=== PATIENT | male | born 1975 | race Caucasian/White ===

== ENCOUNTER 2017-06-19 10:24 | Inpatient (IN) | payer OTHER ==
[~2017-06-19] VITALS: Ht 185.4 cm; Wt 94.5 kg
[2017-06-19] MEDS ORDERED: ONDANSETRON PF 4 MG/2 ML VIAL. IV ONE (10:45)
[2017-06-19] MEDS ORDERED: IV NORMAL SALINE 1000ML BAG 1,000 ML IV ONE (10:45)
[2017-06-19] MEDS ORDERED: fentaNYL PF VIAL 100 MCG/2 ML VIAL IV ONE (10:45)
[2017-06-19 11:09] LABS: POTASSIUM ISTAT 5.2 mmol/L (3.5-5.0)
[2017-06-19 11:54] LABS: BASO % 0 % (0-3); EOS % 0 % (0-3); HEMATOCRIT 28.1 % (39.0-53.0); HEMOGLOBIN 9.1 g/dL (13.0-17.5); LYMPH # 2.5 x10^3/uL (1.0-4.8); LYMPH % 14 % (24-48); MEAN CORPUSCULAR HEMOGLOBIN 26 pg (25-35); MEAN CORPUSCULAR HGB CONC 33 g/dL (31-37); MEAN CORPUSCULAR VOLUME 80 fL (79-100); MONO % 9 % (0-9); NEUT % 78 % (31-73); PLATELET COUNT 365 x10^3/uL (140-400); RED CELL DISTRIBUTION WIDTH 15.3 % (11.5-14.5); WHITE BLOOD COUNT 18.4 x10^3/uL (4.0-11.0)
[2017-06-19] MEDS ORDERED: MORPHINE SULFATE 4 MG/ML DISP.SYRIN. IV ONE (12:15)
[2017-06-19 12:57] LABS: BILIRUBIN,URINE NEGATIVE (NEG); GLUCOSE,URINE NEGATIVE (NEG); NITRITE,URINE NEGATIVE (NEG); PH,URINE 6.5; PROTEIN,URINE NEGATIVE (NEG-TRACE); UROBILINOGEN,URINE 0.2 mg/dL (0.2 mg/dL)
[2017-06-19 13:12] LABS: BACTERIA,URINE 0 /HPF (0-FEW); RBC,URINE 0 /HPF (0-2); WBC,URINE 0 /HPF (0-4)
[2017-06-19] MEDS ORDERED: methylPREDNISolone SOD SUCC PF 125 MG/2 ML VIAL. IV ONE (13:15)
[2017-06-19] MEDS ORDERED: MORPHINE SULFATE 10 MG/ML VIAL. IV ONE (13:30)
[2017-06-19] MEDS ORDERED: MORPHINE SULFATE 4 MG/ML DISP.SYRIN. IV PRN (13:30)
[2017-06-19] MEDS ORDERED: ONDANSETRON PF 4 MG/2 ML VIAL. IV PRN (13:30)
--- NOTE | 2017-06-19 13:44 | ED.ADGEN ---
Past Medical History Past Medical History: GERD, Kidney Stone, Other Additional Past Medical Histor: Crohn's Past Surgical History: Appendectomy, Other Additional Past Surgical Histo: COLON RESECTION X2 Alcohol Use: None Drug Use: None Adult General Chief Complaint Chief Complaint: BLOODY STOOL HPI HPI Patient is a 41 year old MALE who presents with rectal bleeding and abdominal pain. She's had symptoms for the last couple of days. He has history of Crohn's , is had multiple bloody bowel movements. He is not currently on steroids. Seen in another ER yesterday and discharged home but his symptoms persist. He's feeling lightheaded and gets flushed and pale whenever he stands up. His GI specialist is Dr. Sam. Prior abdominal surgeries include a cystectomy and appendectomy. No Fevers noted. Review of Systems Review of Systems Constitutional: Denies fever or chills. [] Eyes: Denies change in visual acuity. [] HENT: Denies nasal congestion or sore throat. [] Respiratory: Denies cough or shortness of breath. [] Cardiovascular: Denies chest pain or edema. [] GI: Per history of present illness : Denies dysuria. [] Musculoskeletal: Denies back pain or joint pain. [] Integument: Denies rash. [] Neurologic: Denies headache, focal weakness or sensory changes. [] Endocrine: Denies polyuria or polydipsia. [] Lymphatic: Denies swollen glands. [] Current Medications Current Medications Current Medications Medications (Trade) Dose Ordered Sig/Liliana Start Time Stop Time Status Last Admin Dose Admin Fentanyl Citrate (Fentanyl 2ml Vial) 50 mcg 1X ONCE 06/19/17 10:45 06/19/17 10:46 DC 06/19/17 11:12 50 MCG Methylprednisolone Sodium Succinate (SOLU-Medrol 125MG VIAL) 125 mg 1X ONCE 06/19/17 13:15 06/19/17 13:16 DC 06/19/17 13:24 125 MG Morphine Sulfate 4 mg PRN Q2HR PRN 06/19/17 13:30 06/20/17 13:29 Ondansetron HCl (Zofran) 4 mg PRN Q8HRS PRN 06/19/17 13:30 06/20/17 13:29 Sodium Chloride 1,000 ml @ 1,000 mls/hr 1X ONCE 06/19/17 10:45 06/19/17 11:44 DC 06/19/17 11:12 1,000 MLS/HR Allergies Allergies Allergies Coded Allergies Type Severity Reaction Last Updated Verified Iodinated Contrast- Oral and IV Dye Allergy Severe 06/19/17 No NSAIDS (Non-Steroidal Anti-Inflamma Allergy Unknown 03/28/14 No metaxalone Allergy Unknown 03/28/14 No Physical Exam Physical Exam Constitutional: Well developed, well nourished, ill-appearing non-toxic appearance. [] HENT: Normocephalic, atraumatic, bilateral external ears normal, oropharynx moist, no oral exudates, nose normal. [] Eyes: PERRLA, EOMI, conjunctiva pale, no discharge. [] Neck: Normal range of motion, no tenderness, supple, no stridor. [] Cardiovascular:Heart rate tachy with regular rhythm, no murmur [] Lungs & Thorax: Bilateral breath sounds clear to auscultation , no wheeze Abdomen: Bowel sounds normal, soft, nondistended, ttp along R upper/mid/lower abdomen. Skin: Warm, dry, no erythema, no rash. [] Back: No tenderness, no CVA tenderness. [] Extremities: No tenderness, no cyanosis, no clubbing, ROM intact, no edema. [] Neurologic: Alert and oriented X 3, normal motor function, normal sensory function, no focal deficits noted. [] Current Patient Data Vital Signs Vital Signs Date Time Temp Pulse Resp B/P (MAP) Pulse Ox O2 Delivery O2 Flow Rate FiO2 06/19/17 13:27 80 20 112/59 (76) 99 Room Air 06/19/17 10:46 98.2 98.2 Lab Values Laboratory Tests Test 06/19/17 11:06 06/19/17 11:15 06/19/17 12:30 POC Hemoglobin 8.5 g/dL (14-18) L POC Hematocrit 25 % (37-52) L POC Sodium 133 mmol/L (135-145) L POC Potassium 5.2 mmol/L (3.5-5.0) H POC Chloride 105 mmol/L (98-110) POC Total CO2 24 mmol/L (23-32) Anion Gap 10 mmol/L (6-14) POC Blood Urea Nitrogen 29 mg/dL (8-26) H POC Creatinine 1.0 mg/dL (0.5-1.4) Glucose Level 109 mg/dL (70-99) H POC Ionized Calcium (Xenia) 1.07 mmol/L (1.13-1.32) L White Blood Count 18.4 x10^3/uL (4.0-11.0) H Red Blood Count 3.50 x10^6/uL (4.30-5.70) L Hemoglobin 9.1 g/dL (13.0-17.5) L Hematocrit 28.1 % (39.0-53.0) L Mean Corpuscular Volume 80 fL (79-100) Mean Corpuscular Hemoglobin 26 pg (25-35) Mean Corpuscular Hemoglobin Concent 33 g/dL (31-37) Red Cell Distribution Width 15.3 % (11.5-14.5) H Platelet Count 365 x10^3/uL (140-400) Neutrophils (%) (Auto) 78 % (31-73) H Lymphocytes (%) (Auto) 14 % (24-48) L Monocytes (%) (Auto) 9 % (0-9) Eosinophils (%) (Auto) 0 % (0-3) Basophils (%) (Auto) 0 % (0-3) Neutrophils # (Auto) 14.2 x10^3uL (1.8-7.7) H Lymphocytes # (Auto) 2.5 x10^3/uL (1.0-4.8) Monocytes # (Auto) 1.6 x10^3/uL (0.0-1.1) H Eosinophils # (Auto) 0.0 x10^3/uL (0.0-0.7) Basophils # (Auto) 0.0 x10^3/uL (0.0-0.2) Platelet Estimate Pending Lactic Acid Level 1.1 mmol/L (0.4-2.0) Urine Collection Type Unknown Urine Color Yellow Urine Clarity Clear Urine pH 6.5 Urine Specific [place] >=1.030 Urine Protein Negative mg/dL (NEG-TRACE) Urine Glucose (UA) Negative mg/dL (NEG) Urine Ketones (Stick) Trace mg/dL (NEG) Urine Blood Negative (NEG) Urine Nitrite Negative (NEG) Urine Bilirubin Negative (NEG) Urine Urobilinogen Dipstick 0.2 mg/dL (0.2 mg/dL) Urine Leukocyte Esterase Negative (NEG) Urine RBC 0 /HPF (0-2) Urine WBC 0 /HPF (0-4) Urine Bacteria 0 /HPF (0-FEW) Urine Hyaline Casts Many /HPF Urine Mucus Marked /LPF Laboratory Tests 06/19/17 11:15 Laboratory Tests 06/19/17 11:06 EKG EKG [] Radiology/Procedures Radiology/Procedures CT abdomen and pelvis ordered to be transferred via the cloud from [facility]], no present at time care transferred Course & Med Decision Making Course & Med Decision Making Pertinent Labs and Imaging studies reviewed. (See chart for details) Pt given IV fluids, required multipl dosing I pains meds. HR improved to 100, no active vomiting. elevated WBC with left shift. Anemia. Contacted Dr Young office, [employer] recommends IV steroids, given. No abx or blood at this time , they will see pt. Pt accepted by Dr. Clinton for admission, ongoing management. DX: Anemia Abdominal pain Crohns [place] Disclaimer Dragon Disclaimer This electronic medical record was generated, in whole or in part, using a voice recognition dictation system. ZEESHAN CHEN MD Jun 19, 2017 13:44
[2017-06-19 13:55] LABS: % EOS 1 % (0-5); PLT ESTIMATE ADEQUATE (ADEQUATE)
[2017-06-19] MEDS ORDERED: diphenhydrAMINE 50 MG/ML VIAL IVP ONE (14:00)
[2017-06-19] MEDS ORDERED: fentaNYL PF VIAL 100 MCG/2 ML VIAL IV PRN ×2 (14:00→14:45)
[2017-06-19] MEDS ORDERED: DEXT20TA24 PO (14:25)
[2017-06-19] MEDS ORDERED: MULT-245 PO (14:27)
[2017-06-19] MEDS ORDERED: CYAN100T PO (14:27)
[2017-06-19] MEDS: IV NORMAL SALINE 1000ML BAG 1,000 ML IV SCH ×2 (14:45→22:45)
[2017-06-19] MEDS ORDERED: ACETAMINOPHEN 500 MG TABLET PO PRN (14:45)
--- NOTE | 2017-06-19 14:55 | PDOC1 ---
History and Physical Date of Admission Date of Admission DATE: 06/19/17 TIME: 14:48 Identification/Chief Complaint Chief Complaint abd pain, rectal bleed Problems: Source Source: Caregiver, Chart review, Patient History of Present Illness History of Present Illness 41 y.o male, known Crohn's since 1995 (mom has Crohn's), has been on Humira yrs back, off now, started to have severe abd pain few days, went to OP given pred which he tapered as instructed getting ready for another round of biologic as OP. Yesterday, tarry stools, tachycardic, could not go to work today , At ER, Hgb 8,5 (from 9.1), WBC 18, no fevers, abd pain uncontrolled with morphine and fentanyl, Had CT done at [place] start yesterday - we are getting those, GI is dr propeck Tachycardia better now after IVF, but pain persists. Lactate normal, K 5,3 - hemolyzed??. Last C scope was some yrs ago Past Medical History Hepatobiliary: Other (crohns) Past Surgical History Past Surgical History: No pertinent history Family History Family History: Other (Crohn's) Social History Smoke: No ALCOHOL: none Drugs: None Current Medications Current Medications Current Medications Fentanyl Citrate (Fentanyl 2ml Vial) 50 mcg 1X ONCE IV Last administered on 11:12; Start 06/19/17 at 10:45; Stop 06/19/17 at 10:46; Status DC Ondansetron HCl (Zofran) 4 mg 1X ONCE IV Last administered on 06/19/17 11:12 ; Start 06/19/17 at 10:45; Stop 06/19/17 at 10:46; Status DC Sodium Chloride 1,000 ml @ 1,000 mls/hr 1X ONCE IV Last administered on 11:12; Start 06/19/17 at 10:45; Stop 06/19/17 at 11:44; Status DC Morphine Sulfate 4 mg 1X ONCE IV Last administered on 06/19/17 12:09; Start 06/19/17 at 12:15; Stop 06/19/17 at 12:16; Status DC Methylprednisolone Sodium Succinate (SOLU-Medrol 125MG VIAL) 125 mg 1X ONCE IV Last administered on 06/19/17 13:24; Start 06/19/17 at 13:15; Stop 06/19/17 at 13:16; Status DC Morphine Sulfate 5 mg 1X ONCE IV Last administered on 06/19/17 13:38; Start 06/19/17 at 13:30; Stop 06/19/17 at 13:31; Status DC Ondansetron HCl (Zofran) 4 mg PRN Q8HRS PRN IV NAUSEA/VOMITING Last administered on 06/19/17 13:37; Start 06/19/17 at 13:30; Stop 06/19/17 at 14:36 ; Status DC Morphine Sulfate 4 mg PRN Q2HR PRN IV PAIN; Start 06/19/17 at 13:30; Stop 06/19 at 13:51; Status DC Diphenhydramine HCl (Benadryl) 25 mg 1X ONCE IVP Last administered on 13:58; Start 06/19/17 at 14:00; Stop 06/19/17 at 14:01; Status DC Fentanyl Citrate (Fentanyl 2ml Vial) 50 mcg PRN Q1HR PRN IV pain; Start at 14:00; Stop 06/19/17 at 14:36; Status DC Fentanyl Citrate (Fentanyl 2ml Vial) 50 mcg PRN Q2HR PRN IV pain; Start at 14:45; Stop 06/19/17 at 18:00 Ondansetron HCl (Zofran) 4 mg PRN Q6HRS PRN IV NAUSEA/VOMITING; Start 06/19/17 at 14:45; Stop 06/20/17 at 14:44 Sodium Chloride 1,000 ml @ 125 mls/hr Q8H IV ; Start 06/19/17 at 14:45 Famotidine (Pepcid) 20 mg BID IVP ; Start 06/19/17 at 21:00 Acetaminophen (Tylenol) 500 mg PRN Q6HRS PRN PO MILD PAIN / TEMP; Start at 14:45 Active Scripts Active Reported Vitamin B-12 (Cyanocobalamin (Vitamin B-12)) 100 Mcg Tablet 100 Mcg PO Multi Vitamin Daily (Multivitamin) 1 Each Tablet 1 Each PO Amphetamine Salts 20 Mg Tablet (Dextroamphetamine/Amphetamine) 20 Mg Tablet 20 Mg PO Allergies Allergies: Coded Allergies: Iodinated Contrast- Oral and IV Dye (Unverified Allergy, Severe, 06/19/17) NSAIDS (Non-Steroidal Anti-Inflamma (Unverified Allergy, Unknown, 03/28/14) metaxalone (Unverified Allergy, Unknown, 03/28/14) ROS Review of System as per HPI, all else is neg - no fevers, no bloody emesis Physical Exam General: Alert, Oriented X3, Cooperative, No acute distress, Other (but looks uncomfortable from pain, bucket at bedside) HEENT: PERRLA Lungs: Clear to auscultation, Normal air movement Heart: S1S2, RRR, no thrills, no rubs Cardiovascular: S1, S2 Abdomen: Soft, Other (tenderness all over but no guarding) Male Genitals Exam: normal genitalia, normal prostate Rectal Exam: not examined PELVIC: Nml ext genitalia Extremities: No clubbing, No cyanosis, No edema, Normal pulses, No tenderness/ swelling Skin: No rashes, No breakdown, No significant lesion Neuro: Normal gait, Normal speech, Strength at 5/5 X4 ext, Normal tone, Sensation intact, Cranial nerves 3-12 NL, Reflexes 2+ Psych/Mental Status: Mental status NL, Mood NL Vitals Vitals Vital Signs Date Time Temp Pulse Resp B/P (MAP) Pulse Ox O2 Delivery O2 Flow Rate FiO2 06/19/17 14:02 77 20 107/63 (78) 98 Room Air 06/19/17 10:46 98.2 98.2 Labs Labs Laboratory Tests Test 06/19/17 11:06 06/19/17 11:15 06/19/17 12:30 Bedside Hemoglobin 8.5 g/dL (14-18) Bedside Hematocrit 25 % (37-52) Bedside Sodium 133 mmol/L (135-145) Bedside Potassium 5.2 mmol/L (3.5-5.0) Bedside Chloride 105 mmol/L (98-110) Bedside Total CO2 24 mmol/L (23-32) Anion Gap 10 mmol/L (6-14) Bedside Blood Urea Nitrogen 29 mg/dL (8-26) Bedside Creatinine 1.0 mg/dL (0.5-1.4) Glucose Level 109 mg/dL (70-99) Bedside Ionized Calcium (Xenia) 1.07 mmol/L (1.13-1.32) White Blood Count 18.4 x10^3/uL (4.0-11.0) Red Blood Count 3.50 x10^6/uL (4.30-5.70) Hemoglobin 9.1 g/dL (13.0-17.5) Hematocrit 28.1 % (39.0-53.0) Mean Corpuscular Volume 80 fL (79-100) Mean Corpuscular Hemoglobin 26 pg (25-35) Mean Corpuscular Hemoglobin Concent 33 g/dL (31-37) Red Cell Distribution Width 15.3 % (11.5-14.5) Platelet Count 365 x10^3/uL (140-400) Neutrophils (%) (Auto) 78 % (31-73) Lymphocytes (%) (Auto) 14 % (24-48) Monocytes (%) (Auto) 9 % (0-9) Eosinophils (%) (Auto) 0 % (0-3) Basophils (%) (Auto) 0 % (0-3) Neutrophils # (Auto) 14.2 x10^3uL (1.8-7.7) Lymphocytes # (Auto) 2.5 x10^3/uL (1.0-4.8) Monocytes # (Auto) 1.6 x10^3/uL (0.0-1.1) Eosinophils # (Auto) 0.0 x10^3/uL (0.0-0.7) Basophils # (Auto) 0.0 x10^3/uL (0.0-0.2) Segmented Neutrophils % 83 % (35-66) Lymphocytes % 12 % (24-48) Monocytes % 4 % (0-10) Eosinophils % 1 % (0-5) Platelet Estimate Adequate (ADEQUATE) Lactic Acid Level 1.1 mmol/L (0.4-2.0) Urine Collection Type Unknown Urine Color Yellow Urine Clarity Clear Urine pH 6.5 Urine Specific [place] >=1.030 Urine Protein Negative mg/dL (NEG-TRACE) Urine Glucose (UA) Negative mg/dL (NEG) Urine Ketones (Stick) Trace mg/dL (NEG) Urine Blood Negative (NEG) Urine Nitrite Negative (NEG) Urine Bilirubin Negative (NEG) Urine Urobilinogen Dipstick 0.2 mg/dL (0.2 mg/dL) Urine Leukocyte Esterase Negative (NEG) Urine RBC 0 /HPF (0-2) Urine WBC 0 /HPF (0-4) Urine Bacteria 0 /HPF (0-FEW) Urine Hyaline Casts Many /HPF Urine Mucus Marked /LPF Laboratory Tests Test 06/19/17 11:06 06/19/17 11:15 06/19/17 12:30 Bedside Hemoglobin 8.5 g/dL (14-18) Bedside Hematocrit 25 % (37-52) Bedside Sodium 133 mmol/L (135-145) Bedside Potassium 5.2 mmol/L (3.5-5.0) Bedside Chloride 105 mmol/L (98-110) Bedside Total CO2 24 mmol/L (23-32) Anion Gap 10 mmol/L (6-14) Bedside Blood Urea Nitrogen 29 mg/dL (8-26) Bedside Creatinine 1.0 mg/dL (0.5-1.4) Glucose Level 109 mg/dL (70-99) Bedside Ionized Calcium (Xenia) 1.07 mmol/L (1.13-1.32) White Blood Count 18.4 x10^3/uL (4.0-11.0) Red Blood Count 3.50 x10^6/uL (4.30-5.70) Hemoglobin 9.1 g/dL (13.0-17.5) Hematocrit 28.1 % (39.0-53.0) Mean Corpuscular Volume 80 fL (79-100) Mean Corpuscular Hemoglobin 26 pg (25-35) Mean Corpuscular Hemoglobin Concent 33 g/dL (31-37) Red Cell Distribution Width 15.3 % (11.5-14.5) Platelet Count 365 x10^3/uL (140-400) Neutrophils (%) (Auto) 78 % (31-73) Lymphocytes (%) (Auto) 14 % (24-48) Monocytes (%) (Auto) 9 % (0-9) Eosinophils (%) (Auto) 0 % (0-3) Basophils (%) (Auto) 0 % (0-3) Neutrophils # (Auto) 14.2 x10^3uL (1.8-7.7) Lymphocytes # (Auto) 2.5 x10^3/uL (1.0-4.8) Monocytes # (Auto) 1.6 x10^3/uL (0.0-1.1) Eosinophils # (Auto) 0.0 x10^3/uL (0.0-0.7) Basophils # (Auto) 0.0 x10^3/uL (0.0-0.2) Segmented Neutrophils % 83 % (35-66) Lymphocytes % 12 % (24-48) Monocytes % 4 % (0-10) Eosinophils % 1 % (0-5) Platelet Estimate Adequate (ADEQUATE) Lactic Acid Level 1.1 mmol/L (0.4-2.0) Urine Collection Type Unknown Urine Color Yellow Urine Clarity Clear Urine pH 6.5 Urine Specific [place] >=1.030 Urine Protein Negative mg/dL (NEG-TRACE) Urine Glucose (UA) Negative mg/dL (NEG) Urine Ketones (Stick) Trace mg/dL (NEG) Urine Blood Negative (NEG) Urine Nitrite Negative (NEG) Urine Bilirubin Negative (NEG) Urine Urobilinogen Dipstick 0.2 mg/dL (0.2 mg/dL) Urine Leukocyte Esterase Negative (NEG) Urine RBC 0 /HPF (0-2) Urine WBC 0 /HPF (0-4) Urine Bacteria 0 /HPF (0-FEW) Urine Hyaline Casts Many /HPF Urine Mucus Marked /LPF VTE Prophylaxis Ordered VTE Prophylaxis Devices: Contraindicated VTE Pharmacological Prophylaxi: Contraindicated Assessment/Plan Assessment/Plan 1. Crohn's exacerbation 2. Anemia of blood loss? on top of chronic inflammation 3,. Tarry stools 4,. SInus tachycardia in oleg background of pain and anemia 5. Mild hyperkalemia PLAn: Add ESR Admit [address] records from [facility] Add dilaudid prn for pain NPO Aggressive iVF 125cc/hr PPI IV Steroids iV? 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
--- NOTE | 2017-06-19 15:13 | PDOC2 ---
GI CONSULT Reason For Consult: Crohn's, anemia HPI: HPI: 41 y/o male w/ a h/o Crohn's s/p resection x 2, initially diagnosed in the (colonoscopy w/ non-specific colitis by Dr. Holt in 1995). Has been followed by many gastroenterologists; most recent saw Dr. Sam in the office in 12/2016. At that time, it was planned to start prednisone taper (which he finished two weeks ago) and resume Humira w/ recommendations to repeat colonoscopy for screening in 2018. He has been off of Humira (and all Crohn's treatments except prednisone) since last resection w/ Dr. Mas in 02/2015. He actually has it at home, ready to take, but was advised by the [facility] nurse ambassador not to start it due to URI symptoms. Last EGD per records reviewed by Dr. Sheridan in 11/2015: hiatal hernia, reflux esophagitis, gastritis, duodenitis, duodenal ulcers. Also had duodenal ulcers on previous EGD in 2014. At one point biopsies negative for H. pylori. Was on omeprazole until several weeks ago; stopped due to cost. Last colonoscopy per records in 10/[address] Campos (prior to resection): single ulcer at anastomosis. Yesterday felt weak w/ SOA and racing heart, most noticed when walking up stairs. Saw PCP, says "everything was fine." Returned home, had a "black tarry stool" and felt sweaty and lightheaded. Went to [facility] ER where a CT scan was performed; he was sent home where threw up some undigested djiboutian fries. 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 He called Dr. Sam's office and was advised to come to the ER. Hgb 9, WBC 18, normal lactic acid. POC BUN was 29 w/ K+ 5.2. Refused another CT; records of yesterday's CT have been requested through the cloud but are not available at this time. Denies hematemesis and hematochezia. Not sure what baseline Hgb is. Probably has lost 10-15 pounds. Appetite okay. Intermittent right-sided pain. Normal bowel pattern in 2-3 stools daily. No h/o C Diff. No recent atbx use, travel, or sick contacts. No NSAID use. Given IV steroids (Solu-Medrol 135mg x 1), started on IV H2 catrachita BID, NPO. PMH: PMH: Crohn's disease s/p 2 resections, nephrolithiasis, cystoscopy, lithotripsy FH: Family History: Other (mother and uncle have Crohn's) Social History: Smoke: Quit ALCOHOL: none Drugs: None ROS: GEN: Denies fevers, chills, sweats HEENT: Denies blurred vision, sore throat CV: +SOA GI: Per HPI : Denies hematuria, dysuria ENDO: +weight loss NEURO: +lightheaded MSK: +weakness SKIN: Denies jaundice, pruritus Vitals: Vitals: Vital Signs Date Time Temp Pulse Resp B/P (MAP) Pulse Ox O2 Delivery O2 Flow Rate FiO2 06/19/17 14:02 77 20 107/63 (78) 98 Room Air 06/19/17 10:46 98.2 98.2 Labs: Labs: Laboratory Tests Test 06/19/17 11:06 06/19/17 11:15 06/19/17 12:30 Bedside Hemoglobin 8.5 g/dL (14-18) Bedside Hematocrit 25 % (37-52) Bedside Sodium 133 mmol/L (135-145) Bedside Potassium 5.2 mmol/L (3.5-5.0) Bedside Chloride 105 mmol/L (98-110) Bedside Total CO2 24 mmol/L (23-32) Anion Gap 10 mmol/L (6-14) Bedside Blood Urea Nitrogen 29 mg/dL (8-26) Bedside Creatinine 1.0 mg/dL (0.5-1.4) Glucose Level 109 mg/dL (70-99) Bedside Ionized Calcium (Xenia) 1.07 mmol/L (1.13-1.32) White Blood Count 18.4 x10^3/uL (4.0-11.0) Red Blood Count 3.50 x10^6/uL (4.30-5.70) Hemoglobin 9.1 g/dL (13.0-17.5) Hematocrit 28.1 % (39.0-53.0) Mean Corpuscular Volume 80 fL (79-100) Mean Corpuscular Hemoglobin 26 pg (25-35) Mean Corpuscular Hemoglobin Concent 33 g/dL (31-37) Red Cell Distribution Width 15.3 % (11.5-14.5) Platelet Count 365 x10^3/uL (140-400) Neutrophils (%) (Auto) 78 % (31-73) Lymphocytes (%) (Auto) 14 % (24-48) Monocytes (%) (Auto) 9 % (0-9) Eosinophils (%) (Auto) 0 % (0-3) Basophils (%) (Auto) 0 % (0-3) Neutrophils # (Auto) 14.2 x10^3uL (1.8-7.7) Lymphocytes # (Auto) 2.5 x10^3/uL (1.0-4.8) Monocytes # (Auto) 1.6 x10^3/uL (0.0-1.1) Eosinophils # (Auto) 0.0 x10^3/uL (0.0-0.7) Basophils # (Auto) 0.0 x10^3/uL (0.0-0.2) Segmented Neutrophils % 83 % (35-66) Lymphocytes % 12 % (24-48) Monocytes % 4 % (0-10) Eosinophils % 1 % (0-5) Platelet Estimate Adequate (ADEQUATE) Lactic Acid Level 1.1 mmol/L (0.4-2.0) Urine Collection Type Unknown Urine Color Yellow Urine Clarity Clear Urine pH 6.5 Urine Specific [place] >=1.030 Urine Protein Negative mg/dL (NEG-TRACE) Urine Glucose (UA) Negative mg/dL (NEG) Urine Ketones (Stick) Trace mg/dL (NEG) Urine Blood Negative (NEG) Urine Nitrite Negative (NEG) Urine Bilirubin Negative (NEG) Urine Urobilinogen Dipstick 0.2 mg/dL (0.2 mg/dL) Urine Leukocyte Esterase Negative (NEG) Urine RBC 0 /HPF (0-2) Urine WBC 0 /HPF (0-4) Urine Bacteria 0 /HPF (0-FEW) Urine Hyaline Casts Many /HPF Urine Mucus Marked /LPF Allergies: Coded Allergies: Iodinated Contrast- Oral and IV Dye (Unverified Allergy, Severe, 06/19/17) NSAIDS (Non-Steroidal Anti-Inflamma (Unverified Allergy, Unknown, 03/28/14) metaxalone (Unverified Allergy, Unknown, 03/28/14) Medications: Current Medications Medications (Trade) Dose Ordered Sig/Liliana Route PRN Reason Start Time Stop Time Status Last Admin Dose Admin Fentanyl Citrate (Fentanyl 2ml Vial) 50 mcg 1X ONCE IV 06/19/17 10:45 06/19/17 10:46 DC 06/19/17 11:12 Ondansetron HCl (Zofran) 4 mg 1X ONCE IV 06/19/17 10:45 06/19/17 10:46 DC 06/19/17 11:12 Sodium Chloride 1,000 ml @ 1,000 mls/hr 1X ONCE IV 06/19/17 10:45 06/19/17 11:44 DC 06/19/17 11:12 Morphine Sulfate 4 mg 1X ONCE IV 06/19/17 12:15 06/19/17 12:16 DC 06/19/17 12:09 Methylprednisolone Sodium Succinate (SOLU-Medrol 125MG VIAL) 125 mg 1X ONCE IV 06/19/17 13:15 06/19/17 13:16 DC 06/19/17 13:24 Morphine Sulfate 5 mg 1X ONCE IV 06/19/17 13:30 06/19/17 13:31 DC 06/19/17 13:38 Ondansetron HCl (Zofran) 4 mg PRN Q8HRS PRN IV NAUSEA/VOMITING 06/19/17 13:30 06/19/17 14:36 DC 06/19/17 13:37 Diphenhydramine HCl (Benadryl) 25 mg 1X ONCE IVP 06/19/17 14:00 06/19/17 14:01 DC 06/19/17 13:58 Imaging: Imaging: Per HPI. PE: GEN: NAD HEENT: Atraumatic, PERRL LUNGS: CTAB HEART: RRR ABD: NABS, S/ND, vague RUQ tenderness EXTREMITY: No edema SKIN: No rashes, no jaundice NEURO/PSYCH: A & O 3 A/P: A/P: Anemia, black stools, lightheadedness -Hgb 9.1, POC BUN 29 -had CT yesterday at [facility], results unavailable ---> refuses repeat scan here -normal lactic acid H/o duodenal ulcers, gastritis, GERD -off PPI x several weeks -last EGD in 2016 H/o Crohn's s/p resection x 2 -recently tapered off prednisone -plans to restart Humira ---> has been off since last resection in 02/2015 -last colonoscopy 2014 Intermittent right-sided pain, weight loss -- Agree w/ IV H2 catrachita w/ h/o ANTHONY. Dr. Sam to see later - ?continue IV steroids or resume PO (w/ recent taper) ?stool studies NURIA CROSS Jun 19, 2017 15:13
[2017-06-19 15:54] VITALS: BP 120/70
[2017-06-19 15:55] VITALS: BP 120/70
[2017-06-19] MEDS: ONDANSETRON PF 4 MG/2 ML VIAL. IV PRN (16:14)
[2017-06-19] MEDS: HYDROmorphone 2 MG/ML VIAL IV PRN ×2 (16:16→20:01)
[2017-06-19 19:00] VITALS: BP 96/52
[2017-06-19] MEDS: FAMOTIDINE 20 MG/2 ML VIAL IVP SCH (20:01)
[2017-06-19 22:36] VITALS: BP 92/52
[2017-06-20] VITALS (30 sets, daily range): BP systolic 94–135; BP diastolic 48–75
[2017-06-20] MEDS: IV NORMAL SALINE 1000ML BAG 1,000 ML IV SCH ×3 (04:06→18:15)
[2017-06-20 06:43] LABS: BASO # 0.1 x10^3/uL (0.0-0.2); BASO % 1 % (0-3); EOS % 0 % (0-3); LYMPH # 2.6 x10^3/uL (1.0-4.8); LYMPH % 23 % (24-48); MEAN CORPUSCULAR HEMOGLOBIN 26 pg (25-35); MEAN CORPUSCULAR HGB CONC 33 g/dL (31-37); MEAN CORPUSCULAR VOLUME 79 fL (79-100); MONO % 6 % (0-9); NEUT % 71 % (31-73); PLATELET COUNT 295 x10^3/uL (140-400); RED BLOOD COUNT 2.28 x10^6/uL (4.30-5.70); RED CELL DISTRIBUTION WIDTH 15.5 % (11.5-14.5); WHITE BLOOD COUNT 11.5 x10^3/uL (4.0-11.0)
[2017-06-20 06:53] LABS: HEMATOCRIT 18.1 % (39.0-53.0)
[2017-06-20 06:56] LABS: CALCIUM 8.3 mg/dL (8.5-10.1); CREATININE 0.8 mg/dL (0.7-1.3); GFR 107.6; POTASSIUM 3.8 mmol/L (3.5-5.1)
[2017-06-20] MEDS ORDERED: IV RINGERS,LACTATED 1000ML 1,000 ML IV SCH ×2 (07:00→09:43)
[2017-06-20] MEDS ORDERED: PROPOFOL 0 ML IV ONE (09:02)
[2017-06-20] MEDS ORDERED: LIDOCAINE 2% PF Vial for OR 5 ML VIAL. ONE (09:03)
--- NOTE | 2017-06-20 09:41 | PDOC4 ---
Operative Note Operative Note EGD with bx/control of bleeding Meds propofol 430 mg iv Pre-op dx acute blood loss anemia/melena Post-op dx duodenal ulcer with adherent clot s/p clip/cautery/epi injection non-erosive gastritis s/p bx Plan npo iv acid suppression serial cbcs/transfuse to maintain hg > 8 IR/surgery consults for possible embolization/oversew if patient rebleeds DEBBIE MURRAY MD Jun 20, 2017 09:41
[2017-06-20] MEDS ORDERED: fentaNYL PF VIAL 100 MCG/2 ML VIAL IV PRN ×2 (09:45)
[2017-06-20] MEDS ORDERED: ONDANSETRON PF 4 MG/2 ML VIAL. IV PRN (09:45)
[2017-06-20] MEDS ORDERED: PROCHLORPERAZINE 10 MG/2 ML VIAL. IV PRN (09:45)
[2017-06-20] MEDS ORDERED: HYDROmorphone 2 MG/ML VIAL IV PRN (09:45)
[2017-06-20] MEDS ORDERED: MORPHINE SULFATE 2 MG/ML DISP.SYRIN. IV PRN (09:45)
[2017-06-20] MEDS ORDERED: LIDOCAINE 1% PF 2 ML VIAL. ID PRN (09:45)
[2017-06-20] MEDS ORDERED: EPINEPHrine SYRINGE 1 MG/10 ML SYRINGE ONE (09:49)
[2017-06-20] MEDS: HYDROmorphone 2 MG/ML VIAL IV PRN ×5 (09:51→17:20)
[2017-06-20] MEDS: ONDANSETRON PF 4 MG/2 ML VIAL. IV PRN (09:55)
[2017-06-20 10:23] LABS: HEMATOCRIT 26.7 % (39.0-53.0); HEMOGLOBIN 8.9 g/dL (13.0-17.5); RED BLOOD COUNT 3.16 x10^6/uL (4.30-5.70); RED CELL DISTRIBUTION WIDTH 16.8 % (11.5-14.5); WHITE BLOOD COUNT 25.5 x10^3/uL (4.0-11.0)
[2017-06-20 10:45] LABS: % SAT IRON 24 % (15-34); IRON,SERUM 53 ug/dL (65-175)
[2017-06-20] MEDS: PANTOPRAZOLE SODIUM IV DRIP 80 MG in IV NORMAL SALINE 100ML 100 ML IV SCH ×2 (12:24→20:14)
[2017-06-20] MEDS: FAMOTIDINE 20 MG/2 ML VIAL IVP SCH (12:32)
[2017-06-20] MEDS ORDERED: MORPHINE SULFATE 4 MG/ML DISP.SYRIN. IV PRN (15:15)
[2017-06-20] MEDS: MORPHINE SULFATE 4 MG/ML DISP.SYRIN. IV PRN ×3 (15:43→22:18)
--- NOTE | 2017-06-20 16:06 | PDOC ---
PROGRESS NOTES Chief Complaint Chief Complaint 1. Crohn's exacerbation 2. Anemia of blood loss 3, .acute upper GI bleed, acute blood loss anemia, 4. duodenal ulcer with adherent clot and non-erosive gastritis 5, SIRS, due to #3 and #1 6. hyperkalemia, hyponatremia improved 6. acute abdominal pain History of Present Illness History of Present Illness EGD today bleeding ulcer clipped and injected Gen surg and IR consulted to follow if bleeding recurs. Q6 Hgb overnight pain control with IV, NPO for now, biotene Vitals Vitals Vital Signs Date Time Temp Pulse Resp B/P (MAP) Pulse Ox O2 Delivery O2 Flow Rate FiO2 06/20/17 10:13 16 100 Room Air 06/20/17 10:10 85 112/57 06/20/17 09:38 98.4 98.4 Physical Exam General: Alert, Oriented X3, Cooperative, No acute distress, Other (but looks uncomfortable from pain, bucket at bedside) Heart: Regular rate, No murmurs Lungs: Clear Abdomen: Soft, Other (tenderness all over but no guarding) Extremities: No clubbing, No cyanosis, No edema, Normal pulses, No tenderness/ swelling Skin: No rashes, No breakdown, No significant lesion Labs LABS Laboratory Tests Test 06/20/17 06:00 06/20/17 10:05 White Blood Count 11.5 x10^3/uL (4.0-11.0) 25.5 x10^3/uL (4.0-11.0) Red Blood Count 2.28 x10^6/uL (4.30-5.70) 3.16 x10^6/uL (4.30-5.70) Hemoglobin 6.0 g/dL (13.0-17.5) 8.9 g/dL (13.0-17.5) Hematocrit 18.1 % (39.0-53.0) 26.7 % (39.0-53.0) Mean Corpuscular Volume 79 fL (79-100) 84 fL (79-100) Mean Corpuscular Hemoglobin 26 pg (25-35) 28 pg (25-35) Mean Corpuscular Hemoglobin Concent 33 g/dL (31-37) 33 g/dL (31-37) Red Cell Distribution Width 15.5 % (11.5-14.5) 16.8 % (11.5-14.5) Platelet Count 295 x10^3/uL (140-400) 380 x10^3/uL (140-400) Neutrophils (%) (Auto) 71 % (31-73) Lymphocytes (%) (Auto) 23 % (24-48) Monocytes (%) (Auto) 6 % (0-9) Eosinophils (%) (Auto) 0 % (0-3) Basophils (%) (Auto) 1 % (0-3) Neutrophils # (Auto) 8.2 x10^3uL (1.8-7.7) Lymphocytes # (Auto) 2.6 x10^3/uL (1.0-4.8) Monocytes # (Auto) 0.7 x10^3/uL (0.0-1.1) Eosinophils # (Auto) 0.0 x10^3/uL (0.0-0.7) Basophils # (Auto) 0.1 x10^3/uL (0.0-0.2) Sodium Level 141 mmol/L (136-145) Potassium Level 3.8 mmol/L (3.5-5.1) Chloride Level 107 mmol/L (98-107) Carbon Dioxide Level 29 mmol/L (21-32) Anion Gap 5 (6-14) Blood Urea Nitrogen 18 mg/dL (8-26) Creatinine 0.8 mg/dL (0.7-1.3) Estimated GFR (Cockcroft-Gault) 107.6 Glucose Level 95 mg/dL (70-99) Calcium Level 8.3 mg/dL (8.5-10.1) Iron Level 53 ug/dL (65-175) Total Iron Binding Capacity 220 ug/dL (250-450) Iron Saturation 24 % (15-34) Review of Systems Review of Systems right flank pain and abd pain Assessment and Plan Assessmemt and Plan IV pain med control, IV fluid, NPO, biotene Problems: Comment Review of Relevant I have reviewed the following items jassi (where applicable) has been applied. Labs Laboratory Tests Test 06/19/17 11:06 06/19/17 11:15 06/19/17 12:30 06/20/17 06:00 Bedside Hemoglobin 8.5 g/dL (14-18) Bedside Hematocrit 25 % (37-52) Bedside Sodium 133 mmol/L (135-145) Bedside Potassium 5.2 mmol/L (3.5-5.0) Bedside Chloride 105 mmol/L (98-110) Bedside Total CO2 24 mmol/L (23-32) Anion Gap 10 mmol/L (6-14) 5 (6-14) Bedside Blood Urea Nitrogen 29 mg/dL (8-26) Bedside Creatinine 1.0 mg/dL (0.5-1.4) Glucose Level 109 mg/dL (70-99) 95 mg/dL (70-99) Bedside Ionized Calcium ([place]) 1.07 mmol/L (1.13-1.32) White Blood Count 18.4 x10^3/uL (4.0-11.0) 11.5 x10^3/uL (4.0-11.0) Red Blood Count 3.50 x10^6/uL (4.30-5.70) 2.28 x10^6/uL (4.30-5.70) Hemoglobin 9.1 g/dL (13.0-17.5) 6.0 g/dL (13.0-17.5) Hematocrit 28.1 % (39.0-53.0) 18.1 % (39.0-53.0) Mean Corpuscular Volume 80 fL (79-100) 79 fL (79-100) Mean Corpuscular Hemoglobin 26 pg (25-35) 26 pg (25-35) Mean Corpuscular Hemoglobin Concent 33 g/dL (31-37) 33 g/dL (31-37) Red Cell Distribution Width 15.3 % (11.5-14.5) 15.5 % (11.5-14.5) Platelet Count 365 x10^3/uL (140-400) 295 x10^3/uL (140-400) Neutrophils (%) (Auto) 78 % (31-73) 71 % (31-73) Lymphocytes (%) (Auto) 14 % (24-48) 23 % (24-48) Monocytes (%) (Auto) 9 % (0-9) 6 % (0-9) Eosinophils (%) (Auto) 0 % (0-3) 0 % (0-3) Basophils (%) (Auto) 0 % (0-3) 1 % (0-3) Neutrophils # (Auto) 14.2 x10^3uL (1.8-7.7) 8.2 x10^3uL (1.8-7.7) Lymphocytes # (Auto) 2.5 x10^3/uL (1.0-4.8) 2.6 x10^3/uL (1.0-4.8) Monocytes # (Auto) 1.6 x10^3/uL (0.0-1.1) 0.7 x10^3/uL (0.0-1.1) Eosinophils # (Auto) 0.0 x10^3/uL (0.0-0.7) 0.0 x10^3/uL (0.0-0.7) Basophils # (Auto) 0.0 x10^3/uL (0.0-0.2) 0.1 x10^3/uL (0.0-0.2) Segmented Neutrophils % 83 % (35-66) Lymphocytes % 12 % (24-48) Monocytes % 4 % (0-10) Eosinophils % 1 % (0-5) Platelet Estimate Adequate (ADEQUATE) Erythrocyte Sedimentation Rate 35 (0-15) Lactic Acid Level 1.1 mmol/L (0.4-2.0) Urine Collection Type Unknown Urine Color Yellow Urine Clarity Clear Urine pH 6.5 Urine Specific [place] >=1.030 Urine Protein Negative mg/dL (NEG-TRACE) Urine Glucose (UA) Negative mg/dL (NEG) Urine Ketones (Stick) Trace mg/dL (NEG) Urine Blood Negative (NEG) Urine Nitrite Negative (NEG) Urine Bilirubin Negative (NEG) Urine Urobilinogen Dipstick 0.2 mg/dL (0.2 mg/dL) Urine Leukocyte Esterase Negative (NEG) Urine RBC 0 /HPF (0-2) Urine WBC 0 /HPF (0-4) Urine Bacteria 0 /HPF (0-FEW) Urine Hyaline Casts Many /HPF Urine Mucus Marked /LPF Sodium Level 141 mmol/L (136-145) Potassium Level 3.8 mmol/L (3.5-5.1) Chloride Level 107 mmol/L (98-107) Carbon Dioxide Level 29 mmol/L (21-32) Blood Urea Nitrogen 18 mg/dL (8-26) Creatinine 0.8 mg/dL (0.7-1.3) Estimated GFR (Cockcroft-Gault) 107.6 Calcium Level 8.3 mg/dL (8.5-10.1) Test 06/20/17 10:05 White Blood Count 25.5 x10^3/uL (4.0-11.0) Red Blood Count 3.16 x10^6/uL (4.30-5.70) Hemoglobin 8.9 g/dL (13.0-17.5) Hematocrit 26.7 % (39.0-53.0) Mean Corpuscular Volume 84 fL (79-100) Mean Corpuscular Hemoglobin 28 pg (25-35) Mean Corpuscular Hemoglobin Concent 33 g/dL (31-37) Red Cell Distribution Width 16.8 % (11.5-14.5) Platelet Count 380 x10^3/uL (140-400) Iron Level 53 ug/dL (65-175) Total Iron Binding Capacity 220 ug/dL (250-450) Iron Saturation 24 % (15-34) Laboratory Tests Test 06/20/17 06:00 06/20/17 10:05 White Blood Count 11.5 x10^3/uL (4.0-11.0) 25.5 x10^3/uL (4.0-11.0) Red Blood Count 2.28 x10^6/uL (4.30-5.70) 3.16 x10^6/uL (4.30-5.70) Hemoglobin 6.0 g/dL (13.0-17.5) 8.9 g/dL (13.0-17.5) Hematocrit 18.1 % (39.0-53.0) 26.7 % (39.0-53.0) Mean Corpuscular Volume 79 fL (79-100) 84 fL (79-100) Mean Corpuscular Hemoglobin 26 pg (25-35) 28 pg (25-35) Mean Corpuscular Hemoglobin Concent 33 g/dL (31-37) 33 g/dL (31-37) Red Cell Distribution Width 15.5 % (11.5-14.5) 16.8 % (11.5-14.5) Platelet Count 295 x10^3/uL (140-400) 380 x10^3/uL (140-400) Neutrophils (%) (Auto) 71 % (31-73) Lymphocytes (%) (Auto) 23 % (24-48) Monocytes (%) (Auto) 6 % (0-9) Eosinophils (%) (Auto) 0 % (0-3) Basophils (%) (Auto) 1 % (0-3) Neutrophils # (Auto) 8.2 x10^3uL (1.8-7.7) Lymphocytes # (Auto) 2.6 x10^3/uL (1.0-4.8) Monocytes # (Auto) 0.7 x10^3/uL (0.0-1.1) Eosinophils # (Auto) 0.0 x10^3/uL (0.0-0.7) Basophils # (Auto) 0.1 x10^3/uL (0.0-0.2) Sodium Level 141 mmol/L (136-145) Potassium Level 3.8 mmol/L (3.5-5.1) Chloride Level 107 mmol/L (98-107) Carbon Dioxide Level 29 mmol/L (21-32) Anion Gap 5 (6-14) Blood Urea Nitrogen 18 mg/dL (8-26) Creatinine 0.8 mg/dL (0.7-1.3) Estimated GFR (Cockcroft-Gault) 107.6 Glucose Level 95 mg/dL (70-99) Calcium Level 8.3 mg/dL (8.5-10.1) Iron Level 53 ug/dL (65-175) Total Iron Binding Capacity 220 ug/dL (250-450) Iron Saturation 24 % (15-34) Medications Current Medications Fentanyl Citrate (Fentanyl 2ml Vial) 50 mcg 1X ONCE IV Last administered on 11:12; Start 06/19/17 at 10:45; Stop 06/19/17 at 10:46; Status DC Ondansetron HCl (Zofran) 4 mg 1X ONCE IV Last administered on 06/19/17 11:12 ; Start 06/19/17 at 10:45; Stop 06/19/17 at 10:46; Status DC Sodium Chloride 1,000 ml @ 1,000 mls/hr 1X ONCE IV Last administered on 11:12; Start 06/19/17 at 10:45; Stop 06/19/17 at 11:44; Status DC Morphine Sulfate 4 mg 1X ONCE IV Last administered on 06/19/17 12:09; Start 06/19/17 at 12:15; Stop 06/19/17 at 12:16; Status DC Methylprednisolone Sodium Succinate (SOLU-Medrol 125MG VIAL) 125 mg 1X ONCE IV Last administered on 06/19/17 13:24; Start 06/19/17 at 13:15; Stop 06/19/17 at 13:16; Status DC Morphine Sulfate 5 mg 1X ONCE IV Last administered on 06/19/17 13:38; Start 06/19/17 at 13:30; Stop 06/19/17 at 13:31; Status DC Ondansetron HCl (Zofran) 4 mg PRN Q8HRS PRN IV NAUSEA/VOMITING Last administered on 06/19/17 13:37; Start 06/19/17 at 13:30; Stop 06/19/17 at 14:36 ; Status DC Morphine Sulfate 4 mg PRN Q2HR PRN IV PAIN; Start 06/19/17 at 13:30; Stop 06/19 at 13:51; Status DC Diphenhydramine HCl (Benadryl) 25 mg 1X ONCE IVP Last administered on 13:58; Start 06/19/17 at 14:00; Stop 06/19/17 at 14:01; Status DC Fentanyl Citrate (Fentanyl 2ml Vial) 50 mcg PRN Q1HR PRN IV pain; Start at 14:00; Stop 06/19/17 at 14:36; Status DC Fentanyl Citrate (Fentanyl 2ml Vial) 50 mcg PRN Q2HR PRN IV pain Last administered on 06/19/17 17:37; Start 06/19/17 at 14:45; Stop 06/19/17 at 18:00 ; Status DC Ondansetron HCl (Zofran) 4 mg PRN Q6HRS PRN IV NAUSEA/VOMITING Last administered on 06/20/17 09:55; Start 06/19/17 at 14:45; Stop 06/20/17 at 14:44 ; Status DC Sodium Chloride 1,000 ml @ 175 mls/hr [id number] IV Last administered on 11:50; Start 06/19/17 at 14:45 Famotidine (Pepcid) 20 mg BID IVP Last administered on 06/20/17t 12:32; Start 06/19/17 at 21:00; Stop 06/20/17 at 15:46; Status DC Acetaminophen (Tylenol) 500 mg PRN Q6HRS PRN PO MILD PAIN / TEMP; Start at 14:45 Hydromorphone HCl (Dilaudid) 1 mg PRN Q3HRS PRN IV PAIN Last administered on t 10:13; Start 06/19/17 at 15:00; Stop 06/20/17 at 11:32; Status DC Ringer's Solution 1,000 ml @ 75 mls/hr [id number] IV ; Start 06/20/17 at 07:00; Stop 06/20/17 at 11:32; Status DC Propofol 20 ml @ As Directed STK-MED ONCE IV ; Start 06/20/17 at 09:02; Stop at 09:03; Status DC Lidocaine HCl (Lidocaine Pf 2% Vial) 5 ml STK-MED ONCE .ROUTE ; Start 06/20/17 at 09:03; Stop 06/20/17 at 09:04; Status DC Ondansetron HCl (Zofran) 4 mg PRN Q6HRS PRN IV NAUSEA/VOMITING; Start 06/20/17 at 09:45; Stop 06/21/17 at 09:44 Fentanyl Citrate (Fentanyl 2ml Vial) 25 mcg PRN Q5MIN PRN IV MILD PAIN; Start 06/20/17 at 09:45; Stop 06/21/17 at 09:44 Fentanyl Citrate (Fentanyl 2ml Vial) 50 mcg PRN Q5MIN PRN IV MODERATE PAIN; Start 06/20/17 at 09:45; Stop 06/21/17 at 09:44 Morphine Sulfate 1 mg PRN Q10MIN PRN IV SEVERE PAIN; Start 06/20/17 at 09:45; Stop 06/21/17 at 09:44 Ringer's Solution 1,000 ml @ 30 mls/hr Q24H IV ; Start 06/20/17 at 09:43; Stop 06/20/17 at 11:32; Status DC Lidocaine HCl (Xylocaine-Mpf 1% Vial) 2 ml PRN 1X PRN ID PRIOR TO IV START; Start 06/20/17 at 09:45; Stop 06/21/17 at 09:44 Hydromorphone HCl (Dilaudid) 0.5 mg PRN Q10MIN PRN IV SEV PAIN, Second choice; Start 06/20/17 at 09:45; Stop 06/21/17 at 09:44 Prochlorperazine Edisylate (Compazine) 5 mg PACU PRN PRN IV NAUSEA, MRX1; Start 06/20/17 at 09:45; Stop 06/21/17 at 09:44 Epinephrine HCl (EPINEPHrine SYRINGE) 1 mg STK-MED ONCE .ROUTE ; Start 06/20/17 at 09:49; Stop 06/20/17 at 09:50; Status DC Hydromorphone HCl (Dilaudid) 1 mg PRN Q1HR PRN IV PAIN Last administered on 14:08; Start 06/20/17 at 11:45 Pantoprazole Sodium 80 mg/ Sodium Chloride 100 ml @ 10 mls/hr Q10H IV Last administered on 06/20/17 12:24; Start 06/20/17 at 12:00 Morphine Sulfate 4 mg PRN Q2HR PRN IV PAIN Last administered on 06/20/17 15:43 ; Start 06/20/17 at 11:45 Morphine Sulfate 2 mg PRN Q4HRS PRN IV PAIN; Start 06/20/17 at 15:15 Active Scripts Active Reported Vitamin B-12 (Cyanocobalamin (Vitamin B-12)) 100 Mcg Tablet 100 Mcg PO Multi Vitamin Daily (Multivitamin) 1 Each Tablet 1 Each PO Amphetamine Salts 20 Mg Tablet (Dextroamphetamine/Amphetamine) 20 Mg Tablet 20 Mg PO Vitals/I & O Vital Sign - Last 24 Hours 06/19/17 06/19/17 06/19/17 06/19/17 16:04 16:16 17:37 17:39 Pulse Ox 100 100 100 O2 Delivery Room Air Room Air Room Air 06/19/17 06/19/17 06/19/17 06/19/17 18:18 18:18 18:18 18:19 Pulse Ox 100 100 100 100 O2 Delivery Room Air Room Air Room Air Room Air 06/19/17 06/19/17 06/19/17 06/20/17 19:00 20:00 22:36 02:43 Temp 98.8 97.9 98.4 98.8 97.9 98.4 Pulse 91 102 90 Resp 18 18 18 B/P (MAP) 96/52 (67) 92/52 (65) 94/48 (63) Pulse Ox 100 97 100 O2 Delivery Room Air Room Air Room Air Room Air 06/20/17 06/20/17 06/20/17 06/20/17 06:37 06:37 07:51 08:07 Temp 98.6 97.7 97.0 98.6 97.7 97.0 Pulse 93 115 84 Resp 18 18 16 B/P (MAP) 118/58 109/60 Pulse Ox 98 O2 Delivery Room Air 06/20/17 06/20/17 06/20/17 06/20/17 08:15 08:17 08:33 08:57 Temp 97.5 97.0 97.5 98.2 97.5 97.0 97.5 98.2 Pulse 95 88 97 90 Resp 16 16 16 14 B/P (MAP) 112/55 112/55 109/56 111/56 06/20/17 06/20/17 06/20/17 06/20/17 09:12 09:38 09:51 09:55 Temp 98.4 98.4 98.4 98.4 Pulse 91 104 85 Resp 14 16 16 16 B/P (MAP) 117/55 133/81 119/57 Pulse Ox 98 98 100 O2 Delivery Room Air Room Air Room Air 06/20/17 06/20/17 10:10 10:13 Pulse 85 Resp 16 16 B/P (MAP) 112/57 Pulse Ox 97 100 O2 Delivery Room Air Room Air JAMIL WOODS MD Jun 20, 2017 16:06
[2017-06-20] MEDS ORDERED: SALIVA STIMULANT AGENT 44ML SPRAY BOTTLE. PO PRN (16:15)
[2017-06-20 18:05] LABS: INR 1.2 (0.8-1.1); PROTHROMBIN TIME PATIENT 14.2 SEC (11.7-14.0)
[2017-06-20 23:41] LABS: HEMATOCRIT 24.7 % (39.0-53.0); HEMOGLOBIN 8.3 g/dL (13.0-17.5); RED BLOOD COUNT 2.87 x10^6/uL (4.30-5.70); RED CELL DISTRIBUTION WIDTH 17.7 % (11.5-14.5); WHITE BLOOD COUNT 9.5 x10^3/uL (4.0-11.0)
[2017-06-21] VITALS (17 sets, daily range): BP systolic 90–152; BP diastolic 52–95
[2017-06-21] MEDS: IV NORMAL SALINE 1000ML BAG 1,000 ML IV SCH ×4 (03:12→21:11)
[2017-06-21] MEDS: MORPHINE SULFATE 4 MG/ML DISP.SYRIN. IV PRN ×6 (03:48→21:06)
[2017-06-21] MEDS ORDERED: ONDANSETRON PF 4 MG/2 ML VIAL. IV PRN (04:00)
[2017-06-21 05:52] LABS: BASO % 1 % (0-3); EOS % 0 % (0-3); HEMATOCRIT 24.5 % (39.0-53.0); HEMOGLOBIN 8.2 g/dL (13.0-17.5); LYMPH # 1.7 x10^3/uL (1.0-4.8); LYMPH % 20 % (24-48); MEAN CORPUSCULAR HEMOGLOBIN 29 pg (25-35); MEAN CORPUSCULAR HGB CONC 34 g/dL (31-37); MEAN CORPUSCULAR VOLUME 86 fL (79-100); MONO % 6 % (0-9); NEUT % 73 % (31-73); PLATELET COUNT 177 x10^3/uL (140-400); RED BLOOD COUNT 2.84 x10^6/uL (4.30-5.70); RED CELL DISTRIBUTION WIDTH 17.9 % (11.5-14.5); WHITE BLOOD COUNT 8.6 x10^3/uL (4.0-11.0)
[2017-06-21 06:15] LABS: ALBUMIN 2.4 g/dL (3.4-5.0); ALBUMIN/GLOBULIN RATIO 0.9 (1.0-1.7); CALCIUM 8.2 mg/dL (8.5-10.1); CREATININE 0.8 mg/dL (0.7-1.3); GFR 107.6; POTASSIUM 3.6 mmol/L (3.5-5.1); TOTAL BILIRUBIN 0.2 mg/dL (0.2-1.0); TOTAL PROTEIN 5.1 g/dL (6.4-8.2)
[2017-06-21] MEDS: PANTOPRAZOLE SODIUM IV DRIP 80 MG in IV NORMAL SALINE 100ML 100 ML IV SCH ×2 (08:13→21:12)
--- NOTE | 2017-06-21 08:40 | PDOC ---
PROGRESS NOTES Chief Complaint Chief Complaint 1. Crohn's exacerbation 2. Anemia of blood loss s/p BTs 3, .acute upper GI bleed, acute blood loss anemia, 4. duodenal ulcer with adherent clot and non-erosive gastritis s/.p EGD with clipping and electrocautery (06/21) 5, SIRS, due to #3 and #1 6. hyperkalemia, hyponatremia improved 6. 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 Vitals Vitals Vital Signs Date Time Temp Pulse Resp B/P (MAP) Pulse Ox O2 Delivery O2 Flow Rate FiO2 06/21/17 08:06 98 Room Air 06/21/17 07:30 98.0 84 20 109/59 (76) 98.0 Physical Exam General: Alert, Oriented X3, Cooperative, No acute distress, Other (but looks uncomfortable from pain, bucket at bedside) Heart: Regular rate, No murmurs Lungs: Clear Abdomen: Soft, Other (tenderness all over but no guarding) Extremities: No clubbing, No cyanosis, No edema, Normal pulses, No tenderness/ swelling Skin: No rashes, No breakdown, No significant lesion Labs LABS Laboratory Tests Test 06/20/17 10:05 06/20/17 11:50 06/20/17 15:55 06/20/17 17:45 White Blood Count 25.5 x10^3/uL (4.0-11.0) Red Blood Count 3.16 x10^6/uL (4.30-5.70) Hemoglobin 8.9 g/dL (13.0-17.5) 7.6 g/dL (13.0-17.5) Hematocrit 26.7 % (39.0-53.0) Mean Corpuscular Volume 84 fL (79-100) Mean Corpuscular Hemoglobin 28 pg (25-35) Mean Corpuscular Hemoglobin Concent 33 g/dL (31-37) Red Cell Distribution Width 16.8 % (11.5-14.5) Platelet Count 380 x10^3/uL (140-400) Iron Level 53 ug/dL (65-175) Total Iron Binding Capacity 220 ug/dL (250-450) Iron Saturation 24 % (15-34) Vitamin B12 Level 161 pg/mL (247-911) Serum Folate 9.04 ng/ml (3.2-20.0) Nasal Screen MRSA (PCR) Negative (Negative) Prothrombin Time 14.2 SEC (11.7-14.0) Prothromb Time International Ratio 1.2 (0.8-1.1) Test 06/20/17 22:35 06/21/17 05:40 White Blood Count 9.5 x10^3/uL (4.0-11.0) 8.6 x10^3/uL (4.0-11.0) Red Blood Count 2.87 x10^6/uL (4.30-5.70) 2.84 x10^6/uL (4.30-5.70) Hemoglobin 8.3 g/dL (13.0-17.5) 8.2 g/dL (13.0-17.5) Hematocrit 24.7 % (39.0-53.0) 24.5 % (39.0-53.0) Mean Corpuscular Volume 86 fL (79-100) 86 fL (79-100) Mean Corpuscular Hemoglobin 29 pg (25-35) 29 pg (25-35) Mean Corpuscular Hemoglobin Concent 34 g/dL (31-37) 34 g/dL (31-37) Red Cell Distribution Width 17.7 % (11.5-14.5) 17.9 % (11.5-14.5) Platelet Count 173 x10^3/uL (140-400) 177 x10^3/uL (140-400) Neutrophils (%) (Auto) 73 % (31-73) Lymphocytes (%) (Auto) 20 % (24-48) Monocytes (%) (Auto) 6 % (0-9) Eosinophils (%) (Auto) 0 % (0-3) Basophils (%) (Auto) 1 % (0-3) Neutrophils # (Auto) 6.3 x10^3uL (1.8-7.7) Lymphocytes # (Auto) 1.7 x10^3/uL (1.0-4.8) Monocytes # (Auto) 0.5 x10^3/uL (0.0-1.1) Eosinophils # (Auto) 0.0 x10^3/uL (0.0-0.7) Basophils # (Auto) 0.0 x10^3/uL (0.0-0.2) Reticulocyte Count (auto) 1.4 % (0.5-2.5) Sodium Level 143 mmol/L (136-145) Potassium Level 3.6 mmol/L (3.5-5.1) Chloride Level 108 mmol/L (98-107) Carbon Dioxide Level 29 mmol/L (21-32) Anion Gap 6 (6-14) Blood Urea Nitrogen 12 mg/dL (8-26) Creatinine 0.8 mg/dL (0.7-1.3) Estimated GFR (Cockcroft-Gault) 107.6 BUN/Creatinine Ratio 15 (6-20) Glucose Level 91 mg/dL (70-99) Calcium Level 8.2 mg/dL (8.5-10.1) Total Bilirubin 0.2 mg/dL (0.2-1.0) Aspartate Amino Transf (AST/SGOT) 15 U/L (15-37) Alanine Aminotransferase (ALT/SGPT) 20 U/L (16-63) Alkaline Phosphatase 57 U/L (46-116) Total Protein 5.1 g/dL (6.4-8.2) Albumin 2.4 g/dL (3.4-5.0) Albumin/Globulin Ratio 0.9 (1.0-1.7) Review of Systems Review of Systems some back pain, stools lightening up, some abd sorness, better Comment Review of Relevant I have reviewed the following items jassi (where applicable) has been applied. Labs Laboratory Tests Test 06/19/17 11:06 06/19/17 11:15 06/19/17 12:30 06/20/17 06:00 Bedside Hemoglobin 8.5 g/dL (14-18) Bedside Hematocrit 25 % (37-52) Bedside Sodium 133 mmol/L (135-145) Bedside Potassium 5.2 mmol/L (3.5-5.0) Bedside Chloride 105 mmol/L (98-110) Bedside Total CO2 24 mmol/L (23-32) Anion Gap 10 mmol/L (6-14) 5 (6-14) Bedside Blood Urea Nitrogen 29 mg/dL (8-26) Bedside Creatinine 1.0 mg/dL (0.5-1.4) Glucose Level 109 mg/dL (70-99) 95 mg/dL (70-99) Bedside Ionized Calcium ([place]) 1.07 mmol/L (1.13-1.32) White Blood Count 18.4 x10^3/uL (4.0-11.0) 11.5 x10^3/uL (4.0-11.0) Red Blood Count 3.50 x10^6/uL (4.30-5.70) 2.28 x10^6/uL (4.30-5.70) Hemoglobin 9.1 g/dL (13.0-17.5) 6.0 g/dL (13.0-17.5) Hematocrit 28.1 % (39.0-53.0) 18.1 % (39.0-53.0) Mean Corpuscular Volume 80 fL (79-100) 79 fL (79-100) Mean Corpuscular Hemoglobin 26 pg (25-35) 26 pg (25-35) Mean Corpuscular Hemoglobin Concent 33 g/dL (31-37) 33 g/dL (31-37) Red Cell Distribution Width 15.3 % (11.5-14.5) 15.5 % (11.5-14.5) Platelet Count 365 x10^3/uL (140-400) 295 x10^3/uL (140-400) Neutrophils (%) (Auto) 78 % (31-73) 71 % (31-73) Lymphocytes (%) (Auto) 14 % (24-48) 23 % (24-48) Monocytes (%) (Auto) 9 % (0-9) 6 % (0-9) Eosinophils (%) (Auto) 0 % (0-3) 0 % (0-3) Basophils (%) (Auto) 0 % (0-3) 1 % (0-3) Neutrophils # (Auto) 14.2 x10^3uL (1.8-7.7) 8.2 x10^3uL (1.8-7.7) Lymphocytes # (Auto) 2.5 x10^3/uL (1.0-4.8) 2.6 x10^3/uL (1.0-4.8) Monocytes # (Auto) 1.6 x10^3/uL (0.0-1.1) 0.7 x10^3/uL (0.0-1.1) Eosinophils # (Auto) 0.0 x10^3/uL (0.0-0.7) 0.0 x10^3/uL (0.0-0.7) Basophils # (Auto) 0.0 x10^3/uL (0.0-0.2) 0.1 x10^3/uL (0.0-0.2) Segmented Neutrophils % 83 % (35-66) Lymphocytes % 12 % (24-48) Monocytes % 4 % (0-10) Eosinophils % 1 % (0-5) Platelet Estimate Adequate (ADEQUATE) Erythrocyte Sedimentation Rate 35 (0-15) Lactic Acid Level 1.1 mmol/L (0.4-2.0) Urine Collection Type Unknown Urine Color Yellow Urine Clarity Clear Urine pH 6.5 Urine Specific [place] >=1.030 Urine Protein Negative mg/dL (NEG-TRACE) Urine Glucose (UA) Negative mg/dL (NEG) Urine Ketones (Stick) Trace mg/dL (NEG) Urine Blood Negative (NEG) Urine Nitrite Negative (NEG) Urine Bilirubin Negative (NEG) Urine Urobilinogen Dipstick 0.2 mg/dL (0.2 mg/dL) Urine Leukocyte Esterase Negative (NEG) Urine RBC 0 /HPF (0-2) Urine WBC 0 /HPF (0-4) Urine Bacteria 0 /HPF (0-FEW) Urine Hyaline Casts Many /HPF Urine Mucus Marked /LPF Sodium Level 141 mmol/L (136-145) Potassium Level 3.8 mmol/L (3.5-5.1) Chloride Level 107 mmol/L (98-107) Carbon Dioxide Level 29 mmol/L (21-32) Blood Urea Nitrogen 18 mg/dL (8-26) Creatinine 0.8 mg/dL (0.7-1.3) Estimated GFR (Cockcroft-Gault) 107.6 Calcium Level 8.3 mg/dL (8.5-10.1) Test 06/20/17 10:05 06/20/17 11:50 06/20/17 15:55 06/20/17 17:45 White Blood Count 25.5 x10^3/uL (4.0-11.0) Red Blood Count 3.16 x10^6/uL (4.30-5.70) Hemoglobin 8.9 g/dL (13.0-17.5) 7.6 g/dL (13.0-17.5) Hematocrit 26.7 % (39.0-53.0) Mean Corpuscular Volume 84 fL (79-100) Mean Corpuscular Hemoglobin 28 pg (25-35) Mean Corpuscular Hemoglobin Concent 33 g/dL (31-37) Red Cell Distribution Width 16.8 % (11.5-14.5) Platelet Count 380 x10^3/uL (140-400) Iron Level 53 ug/dL (65-175) Total Iron Binding Capacity 220 ug/dL (250-450) Iron Saturation 24 % (15-34) Vitamin B12 Level 161 pg/mL (247-911) Serum Folate 9.04 ng/ml (3.2-20.0) Nasal Screen MRSA (PCR) Negative (Negative) Prothrombin Time 14.2 SEC (11.7-14.0) Prothromb Time International Ratio 1.2 (0.8-1.1) Test 06/20/17 22:35 06/21/17 05:40 White Blood Count 9.5 x10^3/uL (4.0-11.0) 8.6 x10^3/uL (4.0-11.0) Red Blood Count 2.87 x10^6/uL (4.30-5.70) 2.84 x10^6/uL (4.30-5.70) Hemoglobin 8.3 g/dL (13.0-17.5) 8.2 g/dL (13.0-17.5) Hematocrit 24.7 % (39.0-53.0) 24.5 % (39.0-53.0) Mean Corpuscular Volume 86 fL (79-100) 86 fL (79-100) Mean Corpuscular Hemoglobin 29 pg (25-35) 29 pg (25-35) Mean Corpuscular Hemoglobin Concent 34 g/dL (31-37) 34 g/dL (31-37) Red Cell Distribution Width 17.7 % (11.5-14.5) 17.9 % (11.5-14.5) Platelet Count 173 x10^3/uL (140-400) 177 x10^3/uL (140-400) Neutrophils (%) (Auto) 73 % (31-73) Lymphocytes (%) (Auto) 20 % (24-48) Monocytes (%) (Auto) 6 % (0-9) Eosinophils (%) (Auto) 0 % (0-3) Basophils (%) (Auto) 1 % (0-3) Neutrophils # (Auto) 6.3 x10^3uL (1.8-7.7) Lymphocytes # (Auto) 1.7 x10^3/uL (1.0-4.8) Monocytes # (Auto) 0.5 x10^3/uL (0.0-1.1) Eosinophils # (Auto) 0.0 x10^3/uL (0.0-0.7) Basophils # (Auto) 0.0 x10^3/uL (0.0-0.2) Reticulocyte Count (auto) 1.4 % (0.5-2.5) Sodium Level 143 mmol/L (136-145) Potassium Level 3.6 mmol/L (3.5-5.1) Chloride Level 108 mmol/L (98-107) Carbon Dioxide Level 29 mmol/L (21-32) Anion Gap 6 (6-14) Blood Urea Nitrogen 12 mg/dL (8-26) Creatinine 0.8 mg/dL (0.7-1.3) Estimated GFR (Cockcroft-Gault) 107.6 BUN/Creatinine Ratio 15 (6-20) Glucose Level 91 mg/dL (70-99) Calcium Level 8.2 mg/dL (8.5-10.1) Total Bilirubin 0.2 mg/dL (0.2-1.0) Aspartate Amino Transf (AST/SGOT) 15 U/L (15-37) Alanine Aminotransferase (ALT/SGPT) 20 U/L (16-63) Alkaline Phosphatase 57 U/L (46-116) Total Protein 5.1 g/dL (6.4-8.2) Albumin 2.4 g/dL (3.4-5.0) Albumin/Globulin Ratio 0.9 (1.0-1.7) Laboratory Tests Test 06/20/17 10:05 06/20/17 11:50 06/20/17 15:55 06/20/17 17:45 White Blood Count 25.5 x10^3/uL (4.0-11.0) Red Blood Count 3.16 x10^6/uL (4.30-5.70) Hemoglobin 8.9 g/dL (13.0-17.5) 7.6 g/dL (13.0-17.5) Hematocrit 26.7 % (39.0-53.0) Mean Corpuscular Volume 84 fL (79-100) Mean Corpuscular Hemoglobin 28 pg (25-35) Mean Corpuscular Hemoglobin Concent 33 g/dL (31-37) Red Cell Distribution Width 16.8 % (11.5-14.5) Platelet Count 380 x10^3/uL (140-400) Iron Level 53 ug/dL (65-175) Total Iron Binding Capacity 220 ug/dL (250-450) Iron Saturation 24 % (15-34) Vitamin B12 Level 161 pg/mL (247-911) Serum Folate 9.04 ng/ml (3.2-20.0) Nasal Screen MRSA (PCR) Negative (Negative) Prothrombin Time 14.2 SEC (11.7-14.0) Prothromb Time International Ratio 1.2 (0.8-1.1) Test 06/20/17 22:35 06/21/17 05:40 White Blood Count 9.5 x10^3/uL (4.0-11.0) 8.6 x10^3/uL (4.0-11.0) Red Blood Count 2.87 x10^6/uL (4.30-5.70) 2.84 x10^6/uL (4.30-5.70) Hemoglobin 8.3 g/dL (13.0-17.5) 8.2 g/dL (13.0-17.5) Hematocrit 24.7 % (39.0-53.0) 24.5 % (39.0-53.0) Mean Corpuscular Volume 86 fL (79-100) 86 fL (79-100) Mean Corpuscular Hemoglobin 29 pg (25-35) 29 pg (25-35) Mean Corpuscular Hemoglobin Concent 34 g/dL (31-37) 34 g/dL (31-37) Red Cell Distribution Width 17.7 % (11.5-14.5) 17.9 % (11.5-14.5) Platelet Count 173 x10^3/uL (140-400) 177 x10^3/uL (140-400) Neutrophils (%) (Auto) 73 % (31-73) Lymphocytes (%) (Auto) 20 % (24-48) Monocytes (%) (Auto) 6 % (0-9) Eosinophils (%) (Auto) 0 % (0-3) Basophils (%) (Auto) 1 % (0-3) Neutrophils # (Auto) 6.3 x10^3uL (1.8-7.7) Lymphocytes # (Auto) 1.7 x10^3/uL (1.0-4.8) Monocytes # (Auto) 0.5 x10^3/uL (0.0-1.1) Eosinophils # (Auto) 0.0 x10^3/uL (0.0-0.7) Basophils # (Auto) 0.0 x10^3/uL (0.0-0.2) Reticulocyte Count (auto) 1.4 % (0.5-2.5) Sodium Level 143 mmol/L (136-145) Potassium Level 3.6 mmol/L (3.5-5.1) Chloride Level 108 mmol/L (98-107) Carbon Dioxide Level 29 mmol/L (21-32) Anion Gap 6 (6-14) Blood Urea Nitrogen 12 mg/dL (8-26) Creatinine 0.8 mg/dL (0.7-1.3) Estimated GFR (Cockcroft-Gault) 107.6 BUN/Creatinine Ratio 15 (6-20) Glucose Level 91 mg/dL (70-99) Calcium Level 8.2 mg/dL (8.5-10.1) Total Bilirubin 0.2 mg/dL (0.2-1.0) Aspartate Amino Transf (AST/SGOT) 15 U/L (15-37) Alanine Aminotransferase (ALT/SGPT) 20 U/L (16-63) Alkaline Phosphatase 57 U/L (46-116) Total Protein 5.1 g/dL (6.4-8.2) Albumin 2.4 g/dL (3.4-5.0) Albumin/Globulin Ratio 0.9 (1.0-1.7) Medications Current Medications Fentanyl Citrate (Fentanyl 2ml Vial) 50 mcg 1X ONCE IV Last administered on 11:12; Start 06/19/17 at 10:45; Stop 06/19/17 at 10:46; Status DC Ondansetron HCl (Zofran) 4 mg 1X ONCE IV Last administered on 06/19/17 11:12 ; Start 06/19/17 at 10:45; Stop 06/19/17 at 10:46; Status DC Sodium Chloride 1,000 ml @ 1,000 mls/hr 1X ONCE IV Last administered on 11:12; Start 06/19/17 at 10:45; Stop 06/19/17 at 11:44; Status DC Morphine Sulfate 4 mg 1X ONCE IV Last administered on 06/19/17 12:09; Start 06/19/17 at 12:15; Stop 06/19/17 at 12:16; Status DC Methylprednisolone Sodium Succinate (SOLU-Medrol 125MG VIAL) 125 mg 1X ONCE IV Last administered on 06/19/17 13:24; Start 06/19/17 at 13:15; Stop 06/19/17 at 13:16; Status DC Morphine Sulfate 5 mg 1X ONCE IV Last administered on 06/19/17 13:38; Start 06/19/17 at 13:30; Stop 06/19/17 at 13:31; Status DC Ondansetron HCl (Zofran) 4 mg PRN Q8HRS PRN IV NAUSEA/VOMITING Last administered on 06/19/17 13:37; Start 06/19/17 at 13:30; Stop 06/19/17 at 14:36 ; Status DC Morphine Sulfate 4 mg PRN Q2HR PRN IV PAIN; Start 06/19/17 at 13:30; Stop 06/19 at 13:51; Status DC Diphenhydramine HCl (Benadryl) 25 mg 1X ONCE IVP Last administered on 13:58; Start 06/19/17 at 14:00; Stop 06/19/17 at 14:01; Status DC Fentanyl Citrate (Fentanyl 2ml Vial) 50 mcg PRN Q1HR PRN IV pain; Start at 14:00; Stop 06/19/17 at 14:36; Status DC Fentanyl Citrate (Fentanyl 2ml Vial) 50 mcg PRN Q2HR PRN IV pain Last administered on 06/19/17 17:37; Start 06/19/17 at 14:45; Stop 06/19/17 at 18:00 ; Status DC Ondansetron HCl (Zofran) 4 mg PRN Q6HRS PRN IV NAUSEA/VOMITING Last administered on 06/20/17 09:55; Start 06/19/17 at 14:45; Stop 06/20/17 at 14:44 ; Status DC Sodium Chloride 1,000 ml @ 175 mls/hr Q5H43M IV Last administered on 03:12; Start 06/19/17 at 14:45; Stop 06/21/17 at 08:30; Status DC Famotidine (Pepcid) 20 mg BID IVP Last administered on 06/20/17 12:32; Start 06/19/17 at 21:00; Stop 06/20/17 at 15:46; Status DC Acetaminophen (Tylenol) 500 mg PRN Q6HRS PRN PO MILD PAIN / TEMP; Start at 14:45 Hydromorphone HCl (Dilaudid) 1 mg PRN Q3HRS PRN IV PAIN Last administered on 10:13; Start 06/19/17 at 15:00; Stop 06/20/17 at 11:32; Status DC Ringer's Solution 1,000 ml @ 75 mls/hr [id number] IV ; Start 06/20/17 at 07:00; Stop 06/20/17 at 11:32; Status DC Propofol 20 ml @ As Directed STK-MED ONCE IV ; Start 06/20/17 at 09:02; Stop at 09:03; Status DC Lidocaine HCl (Lidocaine Pf 2% Vial) 5 ml STK-MED ONCE .ROUTE ; Start 06/20/17 at 09:03; Stop 06/20/17 at 09:04; Status DC Ondansetron HCl (Zofran) 4 mg PRN Q6HRS PRN IV NAUSEA/VOMITING; Start 06/20/17 at 09:45; Stop 06/21/17 at 09:44 Fentanyl Citrate (Fentanyl 2ml Vial) 25 mcg PRN Q5MIN PRN IV MILD PAIN; Start 06/20/17 at 09:45; Stop 06/21/17 at 09:44 Fentanyl Citrate (Fentanyl 2ml Vial) 50 mcg PRN Q5MIN PRN IV MODERATE PAIN; Start 06/20/17 at 09:45; Stop 06/21/17 at 09:44 Morphine Sulfate 1 mg PRN Q10MIN PRN IV SEVERE PAIN; Start 06/20/17 at 09:45; Stop 06/21/17 at 09:44 Ringer's Solution 1,000 ml @ 30 mls/hr Q24H IV ; Start 06/20/17 at 09:43; Stop 06/20/17 at 11:32; Status DC Lidocaine HCl (Xylocaine-Mpf 1% Vial) 2 ml PRN 1X PRN ID PRIOR TO IV START; Start 06/20/17 at 09:45; Stop 06/21/17 at 09:44 Hydromorphone HCl (Dilaudid) 0.5 mg PRN Q10MIN PRN IV SEV PAIN, Second choice; Start 06/20/17 at 09:45; Stop 06/21/17 at 09:44 Prochlorperazine Edisylate (Compazine) 5 mg PACU PRN PRN IV NAUSEA, MRX1; Start 06/20/17 at 09:45; Stop 06/21/17 at 09:44 Epinephrine HCl (EPINEPHrine SYRINGE) 1 mg STK-MED ONCE .ROUTE ; Start 06/20/17 at 09:49; Stop 06/20/17 at 09:50; Status DC Hydromorphone HCl (Dilaudid) 1 mg PRN Q1HR PRN IV PAIN Last administered on 17:20; Start 06/20/17 at 11:45 Pantoprazole Sodium 80 mg/ Sodium Chloride 100 ml @ 10 mls/hr Q10H IV Last administered on 06/21/17 08:13; Start 06/20/17 at 12:00 Morphine Sulfate 4 mg PRN Q2HR PRN IV PAIN Last administered on 06/21/17 08:06 ; Start 06/20/17 at 11:45 Morphine Sulfate 2 mg PRN Q4HRS PRN IV PAIN; Start 06/20/17 at 15:15 Saliva Substitute (Biotene Moisturizing Mouth) 2 spray PRN Q15MIN PRN PO DRY MOUTH; Start 06/20/17 at 16:15 Ondansetron HCl (Zofran) 4 mg PRN Q6HRS PRN IV NAUSEA/VOMITING; Start 06/21/17 at 04:00 Sodium Chloride 1,000 ml @ 100 mls/hr Q10H IV ; Start 06/21/17 at 08:30 Active Scripts Active Reported Vitamin B-12 (Cyanocobalamin (Vitamin B-12)) 100 Mcg Tablet 100 Mcg PO Multi Vitamin Daily (Multivitamin) 1 Each Tablet 1 Each PO Amphetamine Salts 20 Mg Tablet (Dextroamphetamine/Amphetamine) 20 Mg Tablet 20 Mg PO Vitals/I & O Vital Sign - Last 24 Hours 06/20/17 06/20/17 06/20/17 06/20/17 08:57 09:12 09:38 09:51 Temp 98.2 98.4 98.4 98.2 98.4 98.4 Pulse 90 91 104 Resp 14 14 16 16 B/P (MAP) 111/56 117/55 133/81 Pulse Ox 98 98 O2 Delivery Room Air Room Air 06/20/17 06/20/17 06/20/17 06/20/17 09:55 10:10 10:13 10:30 Pulse 85 85 82 Resp 16 16 16 18 B/P (MAP) 119/57 112/57 117/59 (78) Pulse Ox 100 97 100 98 O2 Delivery Room Air Room Air Room Air Room Air 06/20/17 06/20/17 06/20/17 06/20/17 10:45 11:00 11:00 11:15 Temp 98.8 98.8 Pulse 82 82 90 Resp 20 20 22 B/P (MAP) 135/67 (89) 125/71 (89) 128/69 (88) Pulse Ox 97 98 97 O2 Delivery Room Air Room Air Room Air Room Air 06/20/17 06/20/17 06/20/17 06/20/17 12:00 13:00 14:00 15:00 Temp 97.9 97.9 Pulse 80 84 96 92 Resp 16 16 18 20 B/P (MAP) 119/59 (79) 125/64 (84) 112/59 (76) 113/70 (84) Pulse Ox 98 100 99 100 O2 Delivery Room Air Room Air Room Air Room Air 06/20/17 06/20/17 06/20/17 06/20/17 16:00 16:00 17:00 17:49 Temp 98.9 98.7 98.9 98.7 Pulse 82 98 87 Resp 20 22 20 B/P (MAP) 106/53 (70) 97/51 (66) 107/61 Pulse Ox 99 99 O2 Delivery Room Air Room Air Room Air 06/20/17 06/20/17 06/20/17 06/20/17 18:00 18:08 18:45 19:00 Temp 99.4 99.4 99.2 99.4 99.4 99.2 Pulse 90 88 89 93 Resp 20 20 20 20 B/P (MAP) 108/67 (81) 108/67 94/59 104/59 (74) Pulse Ox 99 99 O2 Delivery Room Air Room Air 06/20/17 06/20/17 06/20/17 06/20/17 19:12 19:43 20:00 20:00 Temp 98.9 98.8 98.8 98.9 98.8 98.8 Pulse 90 89 96 Resp 15 20 12 20 B/P (MAP) 104/59 110/59 111/62 (78) Pulse Ox 99 99 O2 Delivery Room Air Room Air 06/20/17 06/20/17 06/20/17 06/20/17 20:00 21:00 21:48 22:00 Temp 98.8 98.8 Pulse 83 77 74 Resp 20 12 20 B/P (MAP) 117/66 (83) 112/62 114/62 (79) Pulse Ox 99 99 O2 Delivery Room Air Room Air Room Air 06/20/17 06/20/17 06/20/17 06/20/17 22:13 22:18 22:48 23:00 Temp 98.6 98.6 Pulse 84 89 Resp 12 12 10 20 B/P (MAP) 110/65 109/75 (86) Pulse Ox 99 99 O2 Delivery Room Air Room Air 06/21/17 06/21/17 06/21/17 06/21/17 00:00 00:00 00:00 00:11 Temp 98.7 98.7 98.7 98.7 98.7 98.7 Pulse 89 80 77 Resp 12 20 12 B/P (MAP) 109/75 101/59 (73) 101/59 Pulse Ox 99 O2 Delivery Room Air Room Air 06/21/17 06/21/17 06/21/17 06/21/17 01:00 02:00 03:00 03:48 Pulse 89 89 81 Resp 12 12 12 10 B/P (MAP) 90/52 (65) 129/67 (87) 110/60 (77) Pulse Ox 99 99 99 99 O2 Delivery Room Air Room Air Room Air Room Air 06/21/17 06/21/17 06/21/17 06/21/17 04:00 04:00 05:00 06:00 Temp 98.6 98.6 Pulse 75 73 78 Resp 12 12 12 B/P (MAP) 113/64 (80) 96/64 (75) 108/60 (76) Pulse Ox 99 99 97 O2 Delivery Room Air Room Air Room Air Room Air 06/21/17 06/21/17 06/21/17 07:30 08:05 08:06 Temp 98.0 98.0 Pulse 84 Resp 20 B/P (MAP) 109/59 (76) Pulse Ox 98 98 98 O2 Delivery Room Air Room Air Room Air SOHEILA HEREDIA MD Jun 21, 2017 08:40
--- NOTE | 2017-06-21 09:26 | PDOC ---
Subjective: Subjective: Feels much better. Scared of needing another blood transfusion. Has some right back pain. Objective: Vital Signs: Vital Signs Date Time Temp Pulse Resp B/P (MAP) Pulse Ox O2 Delivery O2 Flow Rate FiO2 06/21/17 08:06 98 Room Air 06/21/17 07:30 98.0 84 20 109/59 (76) 98.0 Labs: Laboratory Tests Test 06/20/17 10:05 06/20/17 11:50 06/20/17 15:55 06/20/17 17:45 White Blood Count 25.5 x10^3/uL Red Blood Count 3.16 x10^6/uL Hemoglobin 8.9 g/dL 7.6 g/dL Hematocrit 26.7 % Mean Corpuscular Volume 84 fL Mean Corpuscular Hemoglobin 28 pg Mean Corpuscular Hemoglobin Concent 33 g/dL Red Cell Distribution Width 16.8 % Platelet Count 380 x10^3/uL Iron Level 53 ug/dL Total Iron Binding Capacity 220 ug/dL Iron Saturation 24 % Vitamin B12 Level 161 pg/mL Serum Folate 9.04 ng/ml Nasal Screen MRSA (PCR) Negative Prothrombin Time 14.2 SEC Prothromb Time International Ratio 1.2 Test 06/20/17 22:35 06/21/17 05:40 White Blood Count 9.5 x10^3/uL 8.6 x10^3/uL Red Blood Count 2.87 x10^6/uL 2.84 x10^6/uL Hemoglobin 8.3 g/dL 8.2 g/dL Hematocrit 24.7 % 24.5 % Mean Corpuscular Volume 86 fL 86 fL Mean Corpuscular Hemoglobin 29 pg 29 pg Mean Corpuscular Hemoglobin Concent 34 g/dL 34 g/dL Red Cell Distribution Width 17.7 % 17.9 % Platelet Count 173 x10^3/uL 177 x10^3/uL Neutrophils (%) (Auto) 73 % Lymphocytes (%) (Auto) 20 % Monocytes (%) (Auto) 6 % Eosinophils (%) (Auto) 0 % Basophils (%) (Auto) 1 % Neutrophils # (Auto) 6.3 x10^3uL Lymphocytes # (Auto) 1.7 x10^3/uL Monocytes # (Auto) 0.5 x10^3/uL Eosinophils # (Auto) 0.0 x10^3/uL Basophils # (Auto) 0.0 x10^3/uL Reticulocyte Count (auto) 1.4 % Sodium Level 143 mmol/L Potassium Level 3.6 mmol/L Chloride Level 108 mmol/L Carbon Dioxide Level 29 mmol/L Anion Gap 6 Blood Urea Nitrogen 12 mg/dL Creatinine 0.8 mg/dL Estimated GFR (Cockcroft-Gault) 107.6 BUN/Creatinine Ratio 15 Glucose Level 91 mg/dL Calcium Level 8.2 mg/dL Total Bilirubin 0.2 mg/dL Aspartate Amino Transf (AST/SGOT) 15 U/L Alanine Aminotransferase (ALT/SGPT) 20 U/L Alkaline Phosphatase 57 U/L Total Protein 5.1 g/dL Albumin 2.4 g/dL Albumin/Globulin Ratio 0.9 Imaging: EGD 06/20/17: duodenal ulcer with adherent clot s/p clip/cautery/epi injection, non-erosive gastritis s/p bx PE: GEN: NAD LUNGS: CTAB HEART: RRR ABD: NABS, S/ND, tenderness around right ribs to right flank NEURO/PSYCH: A & O 3, anxious A/P: Blood loss anemia -Hgb stable (8.2) Duodenal ulcer s/p endotherapy 06/20/17 -on PPI drip -did have DUs on EGDs in 2014 and 2015 Non-erosive gastritis -path pending H/o Crohn's s/p resection x 2 -recently tapered off prednisone -plans to restart Humira ---> has been off since last resection in 02/2015 -last colonoscopy 2014 -- Continue NPO - ice chips okay. Monitor labs and for recurrent bleeding. Probably reasonable to transfer out of ICU today but will review w/ Dr. Sam. NURIA CROSS Jun 21, 2017 09:26
--- NOTE | 2017-06-21 10:48 | PDOC2 ---
CONSULT Date of Consult Date of Consult DATE: 06/20/17 TIME: 16:00 Reason for Consult Reason for Consult: GI bleed Referring Physician Referring Physician: Flaco Identification/Chief Complaint Chief Complaint abdominal pain Problems: Source Source: Chart review, Patient History of Present Illness Reason for Visit: Enmanuel is a 41-year-old male with history of Crohn's disease who in 2014 underwent ileocolic resection by Dr. Mas. He presented here with a GI bleed. EGD was done revealing a duodenal ulcer that was treated with cautery, clips, and injection. We are asked to be available should surgical intervention be necessary Past Medical History Cardiovascular: No pertinent hx Pulmonary: No pertinent hx GI: Inflam bowel disease Hepatobiliary: Other (crohns) Renal/: No pertinent hx Past Surgical History Past Surgical History: Other (ileo-colic resection for Crohn's with subsequent resection for anastamotic stricture), No pertinent history Family History Family History: Other (Crohn's) Social History No ALCOHOL: none Drugs: None Lives: with Family Current Medications Current Medications Current Medications Fentanyl Citrate (Fentanyl 2ml Vial) 50 mcg 1X ONCE IV Last administered on 11:12; Start 06/19/17 at 10:45; Stop 06/19/17 at 10:46; Status DC Ondansetron HCl (Zofran) 4 mg 1X ONCE IV Last administered on 06/19/17 11:12 ; Start 06/19/17 at 10:45; Stop 06/19/17 at 10:46; Status DC Sodium Chloride 1,000 ml @ 1,000 mls/hr 1X ONCE IV Last administered on 11:12; Start 06/19/17 at 10:45; Stop 06/19/17 at 11:44; Status DC Morphine Sulfate 4 mg 1X ONCE IV Last administered on 06/19/17 12:09; Start 06/19/17 at 12:15; Stop 06/19/17 at 12:16; Status DC Methylprednisolone Sodium Succinate (SOLU-Medrol 125MG VIAL) 125 mg 1X ONCE IV Last administered on 06/19/17 13:24; Start 06/19/17 at 13:15; Stop 06/19/17 at 13:16; Status DC Morphine Sulfate 5 mg 1X ONCE IV Last administered on 06/19/17 13:38; Start 06/19/17 at 13:30; Stop 06/19/17 at 13:31; Status DC Ondansetron HCl (Zofran) 4 mg PRN Q8HRS PRN IV NAUSEA/VOMITING Last administered on 06/19/17 13:37; Start 06/19/17 at 13:30; Stop 06/19/17 at 14:36 ; Status DC Morphine Sulfate 4 mg PRN Q2HR PRN IV PAIN; Start 06/19/17 at 13:30; Stop 06/19 at 13:51; Status DC Diphenhydramine HCl (Benadryl) 25 mg 1X ONCE IVP Last administered on 13:58; Start 06/19/17 at 14:00; Stop 06/19/17 at 14:01; Status DC Fentanyl Citrate (Fentanyl 2ml Vial) 50 mcg PRN Q1HR PRN IV pain; Start at 14:00; Stop 06/19/17 at 14:36; Status DC Fentanyl Citrate (Fentanyl 2ml Vial) 50 mcg PRN Q2HR PRN IV pain Last administered on 06/19/17 17:37; Start 06/19/17 at 14:45; Stop 06/19/17 at 18:00 ; Status DC Ondansetron HCl (Zofran) 4 mg PRN Q6HRS PRN IV NAUSEA/VOMITING Last administered on 06/20/17 09:55; Start 06/19/17 at 14:45; Stop 06/20/17 at 14:44 ; Status DC Sodium Chloride 1,000 ml @ 175 mls/hr Q5H43M IV Last administered on 03:12; Start 06/19/17 at 14:45; Stop 06/21/17 at 08:30; Status DC Famotidine (Pepcid) 20 mg BID IVP Last administered on 06/20/17 12:32; Start 06/19/17 at 21:00; Stop 06/20/17 at 15:46; Status DC Acetaminophen (Tylenol) 500 mg PRN Q6HRS PRN PO MILD PAIN / TEMP; Start at 14:45 Hydromorphone HCl (Dilaudid) 1 mg PRN Q3HRS PRN IV PAIN Last administered on 9/ 27/17at 10:13; Start 06/19/17 at 15:00; Stop 06/20/17 at 11:32; Status DC Ringer's Solution 1,000 ml @ 75 mls/hr [id number] IV ; Start 06/20/17 at 07:00; Stop 06/20/17 at 11:32; Status DC Propofol 20 ml @ As Directed STK-MED ONCE IV ; Start 06/20/17 at 09:02; Stop at 09:03; Status DC Lidocaine HCl (Lidocaine Pf 2% Vial) 5 ml STK-MED ONCE .ROUTE ; Start 06/20/17 at 09:03; Stop 06/20/17 at 09:04; Status DC Ondansetron HCl (Zofran) 4 mg PRN Q6HRS PRN IV NAUSEA/VOMITING; Start 06/20/17 at 09:45; Stop 06/21/17 at 09:44; Status DC Fentanyl Citrate (Fentanyl 2ml Vial) 25 mcg PRN Q5MIN PRN IV MILD PAIN; Start 06/20/17 at 09:45; Stop 06/21/17 at 09:44; Status DC Fentanyl Citrate (Fentanyl 2ml Vial) 50 mcg PRN Q5MIN PRN IV MODERATE PAIN; Start 06/20/17 at 09:45; Stop 06/21/17 at 09:44; Status DC Morphine Sulfate 1 mg PRN Q10MIN PRN IV SEVERE PAIN; Start 06/20/17 at 09:45; Stop 06/21/17 at 09:44; Status DC Ringer's Solution 1,000 ml @ 30 mls/hr Q24H IV ; Start 06/20/17 at 09:43; Stop 06/20/17 at 11:32; Status DC Lidocaine HCl (Xylocaine-Mpf 1% Vial) 2 ml PRN 1X PRN ID PRIOR TO IV START; Start 06/20/17 at 09:45; Stop 06/21/17 at 09:44; Status DC Hydromorphone HCl (Dilaudid) 0.5 mg PRN Q10MIN PRN IV SEV PAIN, Second choice; Start 06/20/17 at 09:45; Stop 06/21/17 at 09:44; Status DC Prochlorperazine Edisylate (Compazine) 5 mg PACU PRN PRN IV NAUSEA, MRX1; Start 06/20/17 at 09:45; Stop 06/21/17 at 09:44; Status DC Epinephrine HCl (EPINEPHrine SYRINGE) 1 mg STK-MED ONCE .ROUTE ; Start 06/20/17 at 09:49; Stop 06/20/17 at 09:50; Status DC Hydromorphone HCl (Dilaudid) 1 mg PRN Q1HR PRN IV PAIN Last administered on 17:20; Start 06/20/17 at 11:45 Pantoprazole Sodium 80 mg/ Sodium Chloride 100 ml @ 10 mls/hr Q10H IV Last administered on 06/21/17 08:13; Start 06/20/17 at 12:00 Morphine Sulfate 4 mg PRN Q2HR PRN IV PAIN Last administered on 06/21/17 08:06 ; Start 06/20/17 at 11:45 Morphine Sulfate 2 mg PRN Q4HRS PRN IV PAIN; Start 06/20/17 at 15:15 Saliva Substitute (Biotene Moisturizing Mouth) 2 spray PRN Q15MIN PRN PO DRY MOUTH; Start 06/20/17 at 16:15 Ondansetron HCl (Zofran) 4 mg PRN Q6HRS PRN IV NAUSEA/VOMITING; Start 06/21/17 at 04:00 Sodium Chloride 1,000 ml @ 100 mls/hr Q10H IV Last administered on 06/21/17 09:33; Start 06/21/17 at 08:30 Active Scripts Active Reported Vitamin B-12 (Cyanocobalamin (Vitamin B-12)) 100 Mcg Tablet 100 Mcg PO Multi Vitamin Daily (Multivitamin) 1 Each Tablet 1 Each PO Amphetamine Salts 20 Mg Tablet (Dextroamphetamine/Amphetamine) 20 Mg Tablet 20 Mg PO Allergies Allergies: Coded Allergies: Iodinated Contrast- Oral and IV Dye (Verified Allergy, Severe, 06/20/17) NSAIDS (Non-Steroidal Anti-Inflamma (Verified Allergy, Intermediate, ) metaxalone (Verified Allergy, Intermediate, 06/20/17) ROS General: YES: Fatigue Eyes: Yes Blurry vision Cardiovascular: yes Lt [place] Gastrointestinal: Yes Abdominal Pain, Yes Diarrhea Neurological: Yes Dizziness Physical Exam General: Alert, Oriented X3, Other (pale) HEENT: Atraumatic Lungs: Clear to auscultation Heart: Other (regular rhythm with increased rate) Abdomen: Soft, Other (some TTP in the epigastrium) Neuro: Normal speech Vitals VITALS Vital Signs Date Time Temp Pulse Resp B/P (MAP) Pulse Ox O2 Delivery O2 Flow Rate FiO2 06/21/17 09:07 98.2 76 20 152/95 (114) 92 Room Air 98.2 Labs Labs Laboratory Tests Test 06/19/17 11:06 06/19/17 11:15 06/19/17 12:30 06/20/17 06:00 Bedside Hemoglobin 8.5 g/dL (14-18) Bedside Hematocrit 25 % (37-52) Bedside Sodium 133 mmol/L (135-145) Bedside Potassium 5.2 mmol/L (3.5-5.0) Bedside Chloride 105 mmol/L (98-110) Bedside Total CO2 24 mmol/L (23-32) Anion Gap 10 mmol/L (6-14) 5 (6-14) Bedside Blood Urea Nitrogen 29 mg/dL (8-26) Bedside Creatinine 1.0 mg/dL (0.5-1.4) Glucose Level 109 mg/dL (70-99) 95 mg/dL (70-99) Bedside Ionized Calcium (Xenia) 1.07 mmol/L (1.13-1.32) White Blood Count 18.4 x10^3/uL (4.0-11.0) 11.5 x10^3/uL (4.0-11.0) Red Blood Count 3.50 x10^6/uL (4.30-5.70) 2.28 x10^6/uL (4.30-5.70) Hemoglobin 9.1 g/dL (13.0-17.5) 6.0 g/dL (13.0-17.5) Hematocrit 28.1 % (39.0-53.0) 18.1 % (39.0-53.0) Mean Corpuscular Volume 80 fL (79-100) 79 fL (79-100) Mean Corpuscular Hemoglobin 26 pg (25-35) 26 pg (25-35) Mean Corpuscular Hemoglobin Concent 33 g/dL (31-37) 33 g/dL (31-37) Red Cell Distribution Width 15.3 % (11.5-14.5) 15.5 % (11.5-14.5) Platelet Count 365 x10^3/uL (140-400) 295 x10^3/uL (140-400) Neutrophils (%) (Auto) 78 % (31-73) 71 % (31-73) Lymphocytes (%) (Auto) 14 % (24-48) 23 % (24-48) Monocytes (%) (Auto) 9 % (0-9) 6 % (0-9) Eosinophils (%) (Auto) 0 % (0-3) 0 % (0-3) Basophils (%) (Auto) 0 % (0-3) 1 % (0-3) Neutrophils # (Auto) 14.2 x10^3uL (1.8-7.7) 8.2 x10^3uL (1.8-7.7) Lymphocytes # (Auto) 2.5 x10^3/uL (1.0-4.8) 2.6 x10^3/uL (1.0-4.8) Monocytes # (Auto) 1.6 x10^3/uL (0.0-1.1) 0.7 x10^3/uL (0.0-1.1) Eosinophils # (Auto) 0.0 x10^3/uL (0.0-0.7) 0.0 x10^3/uL (0.0-0.7) Basophils # (Auto) 0.0 x10^3/uL (0.0-0.2) 0.1 x10^3/uL (0.0-0.2) Segmented Neutrophils % 83 % (35-66) Lymphocytes % 12 % (24-48) Monocytes % 4 % (0-10) Eosinophils % 1 % (0-5) Platelet Estimate Adequate (ADEQUATE) Erythrocyte Sedimentation Rate 35 (0-15) Lactic Acid Level 1.1 mmol/L (0.4-2.0) Urine Collection Type Unknown Urine Color Yellow Urine Clarity Clear Urine pH 6.5 Urine Specific [place] >=1.030 Urine Protein Negative mg/dL (NEG-TRACE) Urine Glucose (UA) Negative mg/dL (NEG) Urine Ketones (Stick) Trace mg/dL (NEG) Urine Blood Negative (NEG) Urine Nitrite Negative (NEG) Urine Bilirubin Negative (NEG) Urine Urobilinogen Dipstick 0.2 mg/dL (0.2 mg/dL) Urine Leukocyte Esterase Negative (NEG) Urine RBC 0 /HPF (0-2) Urine WBC 0 /HPF (0-4) Urine Bacteria 0 /HPF (0-FEW) Urine Hyaline Casts Many /HPF Urine Mucus Marked /LPF Sodium Level 141 mmol/L (136-145) Potassium Level 3.8 mmol/L (3.5-5.1) Chloride Level 107 mmol/L (98-107) Carbon Dioxide Level 29 mmol/L (21-32) Blood Urea Nitrogen 18 mg/dL (8-26) Creatinine 0.8 mg/dL (0.7-1.3) Estimated GFR (Cockcroft-Gault) 107.6 Calcium Level 8.3 mg/dL (8.5-10.1) Test 06/20/17 10:05 06/20/17 11:50 06/20/17 15:55 06/20/17 17:45 White Blood Count 25.5 x10^3/uL (4.0-11.0) Red Blood Count 3.16 x10^6/uL (4.30-5.70) Hemoglobin 8.9 g/dL (13.0-17.5) 7.6 g/dL (13.0-17.5) Hematocrit 26.7 % (39.0-53.0) Mean Corpuscular Volume 84 fL (79-100) Mean Corpuscular Hemoglobin 28 pg (25-35) Mean Corpuscular Hemoglobin Concent 33 g/dL (31-37) Red Cell Distribution Width 16.8 % (11.5-14.5) Platelet Count 380 x10^3/uL (140-400) Iron Level 53 ug/dL (65-175) Total Iron Binding Capacity 220 ug/dL (250-450) Iron Saturation 24 % (15-34) Vitamin B12 Level 161 pg/mL (247-911) Serum Folate 9.04 ng/ml (3.2-20.0) Nasal Screen MRSA (PCR) Negative (Negative) Prothrombin Time 14.2 SEC (11.7-14.0) Prothromb Time International Ratio 1.2 (0.8-1.1) Test 06/20/17 22:35 06/21/17 05:40 White Blood Count 9.5 x10^3/uL (4.0-11.0) 8.6 x10^3/uL (4.0-11.0) Red Blood Count 2.87 x10^6/uL (4.30-5.70) 2.84 x10^6/uL (4.30-5.70) Hemoglobin 8.3 g/dL (13.0-17.5) 8.2 g/dL (13.0-17.5) Hematocrit 24.7 % (39.0-53.0) 24.5 % (39.0-53.0) Mean Corpuscular Volume 86 fL (79-100) 86 fL (79-100) Mean Corpuscular Hemoglobin 29 pg (25-35) 29 pg (25-35) Mean Corpuscular Hemoglobin Concent 34 g/dL (31-37) 34 g/dL (31-37) Red Cell Distribution Width 17.7 % (11.5-14.5) 17.9 % (11.5-14.5) Platelet Count 173 x10^3/uL (140-400) 177 x10^3/uL (140-400) Neutrophils (%) (Auto) 73 % (31-73) Lymphocytes (%) (Auto) 20 % (24-48) Monocytes (%) (Auto) 6 % (0-9) Eosinophils (%) (Auto) 0 % (0-3) Basophils (%) (Auto) 1 % (0-3) Neutrophils # (Auto) 6.3 x10^3uL (1.8-7.7) Lymphocytes # (Auto) 1.7 x10^3/uL (1.0-4.8) Monocytes # (Auto) 0.5 x10^3/uL (0.0-1.1) Eosinophils # (Auto) 0.0 x10^3/uL (0.0-0.7) Basophils # (Auto) 0.0 x10^3/uL (0.0-0.2) Reticulocyte Count (auto) 1.4 % (0.5-2.5) Sodium Level 143 mmol/L (136-145) Potassium Level 3.6 mmol/L (3.5-5.1) Chloride Level 108 mmol/L (98-107) Carbon Dioxide Level 29 mmol/L (21-32) Anion Gap 6 (6-14) Blood Urea Nitrogen 12 mg/dL (8-26) Creatinine 0.8 mg/dL (0.7-1.3) Estimated GFR (Cockcroft-Gault) 107.6 BUN/Creatinine Ratio 15 (6-20) Glucose Level 91 mg/dL (70-99) Calcium Level 8.2 mg/dL (8.5-10.1) Total Bilirubin 0.2 mg/dL (0.2-1.0) Aspartate Amino Transf (AST/SGOT) 15 U/L (15-37) Alanine Aminotransferase (ALT/SGPT) 20 U/L (16-63) Alkaline Phosphatase 57 U/L (46-116) Total Protein 5.1 g/dL (6.4-8.2) Albumin 2.4 g/dL (3.4-5.0) Albumin/Globulin Ratio 0.9 (1.0-1.7) Laboratory Tests Test 06/20/17 11:50 06/20/17 15:55 06/20/17 17:45 06/20/17 22:35 Nasal Screen MRSA (PCR) Negative (Negative) Hemoglobin 7.6 g/dL (13.0-17.5) 8.3 g/dL (13.0-17.5) Prothrombin Time 14.2 SEC (11.7-14.0) Prothromb Time International Ratio 1.2 (0.8-1.1) White Blood Count 9.5 x10^3/uL (4.0-11.0) Red Blood Count 2.87 x10^6/uL (4.30-5.70) Hematocrit 24.7 % (39.0-53.0) Mean Corpuscular Volume 86 fL (79-100) Mean Corpuscular Hemoglobin 29 pg (25-35) Mean Corpuscular Hemoglobin Concent 34 g/dL (31-37) Red Cell Distribution Width 17.7 % (11.5-14.5) Platelet Count 173 x10^3/uL (140-400) Test 06/21/17 05:40 White Blood Count 8.6 x10^3/uL (4.0-11.0) Red Blood Count 2.84 x10^6/uL (4.30-5.70) Hemoglobin 8.2 g/dL (13.0-17.5) Hematocrit 24.5 % (39.0-53.0) Mean Corpuscular Volume 86 fL (79-100) Mean Corpuscular Hemoglobin 29 pg (25-35) Mean Corpuscular Hemoglobin Concent 34 g/dL (31-37) Red Cell Distribution Width 17.9 % (11.5-14.5) Platelet Count 177 x10^3/uL (140-400) Neutrophils (%) (Auto) 73 % (31-73) Lymphocytes (%) (Auto) 20 % (24-48) Monocytes (%) (Auto) 6 % (0-9) Eosinophils (%) (Auto) 0 % (0-3) Basophils (%) (Auto) 1 % (0-3) Neutrophils # (Auto) 6.3 x10^3uL (1.8-7.7) Lymphocytes # (Auto) 1.7 x10^3/uL (1.0-4.8) Monocytes # (Auto) 0.5 x10^3/uL (0.0-1.1) Eosinophils # (Auto) 0.0 x10^3/uL (0.0-0.7) Basophils # (Auto) 0.0 x10^3/uL (0.0-0.2) Reticulocyte Count (auto) 1.4 % (0.5-2.5) Sodium Level 143 mmol/L (136-145) Potassium Level 3.6 mmol/L (3.5-5.1) Chloride Level 108 mmol/L (98-107) Carbon Dioxide Level 29 mmol/L (21-32) Anion Gap 6 (6-14) Blood Urea Nitrogen 12 mg/dL (8-26) Creatinine 0.8 mg/dL (0.7-1.3) Estimated GFR (Cockcroft-Gault) 107.6 BUN/Creatinine Ratio 15 (6-20) Glucose Level 91 mg/dL (70-99) Calcium Level 8.2 mg/dL (8.5-10.1) Total Bilirubin 0.2 mg/dL (0.2-1.0) Aspartate Amino Transf (AST/SGOT) 15 U/L (15-37) Alanine Aminotransferase (ALT/SGPT) 20 U/L (16-63) Alkaline Phosphatase 57 U/L (46-116) Total Protein 5.1 g/dL (6.4-8.2) Albumin 2.4 g/dL (3.4-5.0) Albumin/Globulin Ratio 0.9 (1.0-1.7) Assessment/Plan Assessment/Plan UGI bleed hx of Crohn's hemodynamically stable at present will follow with you Thanks for the consult! KATHARINE APARICIO MD Jun 21, 2017 10:48
--- NOTE | 2017-06-21 10:53 | PDOC ---
SURGICAL PROGRESS NOTE Subjective Feels better this morning Has been up in his room and has not felt lightheaded or dizzy Had some melanotic stool during the night but most recently had some brown stool along with the melena Pain is improved Vital Signs Vital Signs Date Time Temp Pulse Resp B/P (MAP) Pulse Ox O2 Delivery O2 Flow Rate FiO2 06/21/17 09:07 98.2 76 20 152/95 (114) 92 Room Air 98.2 I&O Intake and Output 06/22/17 07:00 Output Total 250 ml Balance -250 ml Output Urine Total 250 ml PATIENT HAS A HERNANDEZ: No General: Alert, Oriented X3, Cooperative, No acute distress, Other (better color) Abdomen: Soft, Other (less TTP) Labs Laboratory Tests Test 06/19/17 11:06 06/19/17 11:15 06/19/17 12:30 06/20/17 06:00 Bedside Hemoglobin 8.5 g/dL (14-18) Bedside Hematocrit 25 % (37-52) Bedside Sodium 133 mmol/L (135-145) Bedside Potassium 5.2 mmol/L (3.5-5.0) Bedside Chloride 105 mmol/L (98-110) Bedside Total CO2 24 mmol/L (23-32) Anion Gap 10 mmol/L (6-14) 5 (6-14) Bedside Blood Urea Nitrogen 29 mg/dL (8-26) Bedside Creatinine 1.0 mg/dL (0.5-1.4) Glucose Level 109 mg/dL (70-99) 95 mg/dL (70-99) Bedside Ionized Calcium ([place]) 1.07 mmol/L (1.13-1.32) White Blood Count 18.4 x10^3/uL (4.0-11.0) 11.5 x10^3/uL (4.0-11.0) Red Blood Count 3.50 x10^6/uL (4.30-5.70) 2.28 x10^6/uL (4.30-5.70) Hemoglobin 9.1 g/dL (13.0-17.5) 6.0 g/dL (13.0-17.5) Hematocrit 28.1 % (39.0-53.0) 18.1 % (39.0-53.0) Mean Corpuscular Volume 80 fL (79-100) 79 fL (79-100) Mean Corpuscular Hemoglobin 26 pg (25-35) 26 pg (25-35) Mean Corpuscular Hemoglobin Concent 33 g/dL (31-37) 33 g/dL (31-37) Red Cell Distribution Width 15.3 % (11.5-14.5) 15.5 % (11.5-14.5) Platelet Count 365 x10^3/uL (140-400) 295 x10^3/uL (140-400) Neutrophils (%) (Auto) 78 % (31-73) 71 % (31-73) Lymphocytes (%) (Auto) 14 % (24-48) 23 % (24-48) Monocytes (%) (Auto) 9 % (0-9) 6 % (0-9) Eosinophils (%) (Auto) 0 % (0-3) 0 % (0-3) Basophils (%) (Auto) 0 % (0-3) 1 % (0-3) Neutrophils # (Auto) 14.2 x10^3uL (1.8-7.7) 8.2 x10^3uL (1.8-7.7) Lymphocytes # (Auto) 2.5 x10^3/uL (1.0-4.8) 2.6 x10^3/uL (1.0-4.8) Monocytes # (Auto) 1.6 x10^3/uL (0.0-1.1) 0.7 x10^3/uL (0.0-1.1) Eosinophils # (Auto) 0.0 x10^3/uL (0.0-0.7) 0.0 x10^3/uL (0.0-0.7) Basophils # (Auto) 0.0 x10^3/uL (0.0-0.2) 0.1 x10^3/uL (0.0-0.2) Segmented Neutrophils % 83 % (35-66) Lymphocytes % 12 % (24-48) Monocytes % 4 % (0-10) Eosinophils % 1 % (0-5) Platelet Estimate Adequate (ADEQUATE) Erythrocyte Sedimentation Rate 35 (0-15) Lactic Acid Level 1.1 mmol/L (0.4-2.0) Urine Collection Type Unknown Urine Color Yellow Urine Clarity Clear Urine pH 6.5 Urine Specific [place] >=1.030 Urine Protein Negative mg/dL (NEG-TRACE) Urine Glucose (UA) Negative mg/dL (NEG) Urine Ketones (Stick) Trace mg/dL (NEG) Urine Blood Negative (NEG) Urine Nitrite Negative (NEG) Urine Bilirubin Negative (NEG) Urine Urobilinogen Dipstick 0.2 mg/dL (0.2 mg/dL) Urine Leukocyte Esterase Negative (NEG) Urine RBC 0 /HPF (0-2) Urine WBC 0 /HPF (0-4) Urine Bacteria 0 /HPF (0-FEW) Urine Hyaline Casts Many /HPF Urine Mucus Marked /LPF Sodium Level 141 mmol/L (136-145) Potassium Level 3.8 mmol/L (3.5-5.1) Chloride Level 107 mmol/L (98-107) Carbon Dioxide Level 29 mmol/L (21-32) Blood Urea Nitrogen 18 mg/dL (8-26) Creatinine 0.8 mg/dL (0.7-1.3) Estimated GFR (Cockcroft-Gault) 107.6 Calcium Level 8.3 mg/dL (8.5-10.1) Test 06/20/17 10:05 06/20/17 11:50 06/20/17 15:55 06/20/17 17:45 White Blood Count 25.5 x10^3/uL (4.0-11.0) Red Blood Count 3.16 x10^6/uL (4.30-5.70) Hemoglobin 8.9 g/dL (13.0-17.5) 7.6 g/dL (13.0-17.5) Hematocrit 26.7 % (39.0-53.0) Mean Corpuscular Volume 84 fL (79-100) Mean Corpuscular Hemoglobin 28 pg (25-35) Mean Corpuscular Hemoglobin Concent 33 g/dL (31-37) Red Cell Distribution Width 16.8 % (11.5-14.5) Platelet Count 380 x10^3/uL (140-400) Iron Level 53 ug/dL (65-175) Total Iron Binding Capacity 220 ug/dL (250-450) Iron Saturation 24 % (15-34) Vitamin B12 Level 161 pg/mL (247-911) Serum Folate 9.04 ng/ml (3.2-20.0) Nasal Screen MRSA (PCR) Negative (Negative) Prothrombin Time 14.2 SEC (11.7-14.0) Prothromb Time International Ratio 1.2 (0.8-1.1) Test 06/20/17 22:35 06/21/17 05:40 White Blood Count 9.5 x10^3/uL (4.0-11.0) 8.6 x10^3/uL (4.0-11.0) Red Blood Count 2.87 x10^6/uL (4.30-5.70) 2.84 x10^6/uL (4.30-5.70) Hemoglobin 8.3 g/dL (13.0-17.5) 8.2 g/dL (13.0-17.5) Hematocrit 24.7 % (39.0-53.0) 24.5 % (39.0-53.0) Mean Corpuscular Volume 86 fL (79-100) 86 fL (79-100) Mean Corpuscular Hemoglobin 29 pg (25-35) 29 pg (25-35) Mean Corpuscular Hemoglobin Concent 34 g/dL (31-37) 34 g/dL (31-37) Red Cell Distribution Width 17.7 % (11.5-14.5) 17.9 % (11.5-14.5) Platelet Count 173 x10^3/uL (140-400) 177 x10^3/uL (140-400) Neutrophils (%) (Auto) 73 % (31-73) Lymphocytes (%) (Auto) 20 % (24-48) Monocytes (%) (Auto) 6 % (0-9) Eosinophils (%) (Auto) 0 % (0-3) Basophils (%) (Auto) 1 % (0-3) Neutrophils # (Auto) 6.3 x10^3uL (1.8-7.7) Lymphocytes # (Auto) 1.7 x10^3/uL (1.0-4.8) Monocytes # (Auto) 0.5 x10^3/uL (0.0-1.1) Eosinophils # (Auto) 0.0 x10^3/uL (0.0-0.7) Basophils # (Auto) 0.0 x10^3/uL (0.0-0.2) Reticulocyte Count (auto) 1.4 % (0.5-2.5) Sodium Level 143 mmol/L (136-145) Potassium Level 3.6 mmol/L (3.5-5.1) Chloride Level 108 mmol/L (98-107) Carbon Dioxide Level 29 mmol/L (21-32) Anion Gap 6 (6-14) Blood Urea Nitrogen 12 mg/dL (8-26) Creatinine 0.8 mg/dL (0.7-1.3) Estimated GFR (Cockcroft-Gault) 107.6 BUN/Creatinine Ratio 15 (6-20) Glucose Level 91 mg/dL (70-99) Calcium Level 8.2 mg/dL (8.5-10.1) Total Bilirubin 0.2 mg/dL (0.2-1.0) Aspartate Amino Transf (AST/SGOT) 15 U/L (15-37) Alanine Aminotransferase (ALT/SGPT) 20 U/L (16-63) Alkaline Phosphatase 57 U/L (46-116) Total Protein 5.1 g/dL (6.4-8.2) Albumin 2.4 g/dL (3.4-5.0) Albumin/Globulin Ratio 0.9 (1.0-1.7) Laboratory Tests Test 06/20/17 11:50 06/20/17 15:55 06/20/17 17:45 06/20/17 22:35 Nasal Screen MRSA (PCR) Negative (Negative) Hemoglobin 7.6 g/dL (13.0-17.5) 8.3 g/dL (13.0-17.5) Prothrombin Time 14.2 SEC (11.7-14.0) Prothromb Time International Ratio 1.2 (0.8-1.1) White Blood Count 9.5 x10^3/uL (4.0-11.0) Red Blood Count 2.87 x10^6/uL (4.30-5.70) Hematocrit 24.7 % (39.0-53.0) Mean Corpuscular Volume 86 fL (79-100) Mean Corpuscular Hemoglobin 29 pg (25-35) Mean Corpuscular Hemoglobin Concent 34 g/dL (31-37) Red Cell Distribution Width 17.7 % (11.5-14.5) Platelet Count 173 x10^3/uL (140-400) Test 06/21/17 05:40 White Blood Count 8.6 x10^3/uL (4.0-11.0) Red Blood Count 2.84 x10^6/uL (4.30-5.70) Hemoglobin 8.2 g/dL (13.0-17.5) Hematocrit 24.5 % (39.0-53.0) Mean Corpuscular Volume 86 fL (79-100) Mean Corpuscular Hemoglobin 29 pg (25-35) Mean Corpuscular Hemoglobin Concent 34 g/dL (31-37) Red Cell Distribution Width 17.9 % (11.5-14.5) Platelet Count 177 x10^3/uL (140-400) Neutrophils (%) (Auto) 73 % (31-73) Lymphocytes (%) (Auto) 20 % (24-48) Monocytes (%) (Auto) 6 % (0-9) Eosinophils (%) (Auto) 0 % (0-3) Basophils (%) (Auto) 1 % (0-3) Neutrophils # (Auto) 6.3 x10^3uL (1.8-7.7) Lymphocytes # (Auto) 1.7 x10^3/uL (1.0-4.8) Monocytes # (Auto) 0.5 x10^3/uL (0.0-1.1) Eosinophils # (Auto) 0.0 x10^3/uL (0.0-0.7) Basophils # (Auto) 0.0 x10^3/uL (0.0-0.2) Reticulocyte Count (auto) 1.4 % (0.5-2.5) Sodium Level 143 mmol/L (136-145) Potassium Level 3.6 mmol/L (3.5-5.1) Chloride Level 108 mmol/L (98-107) Carbon Dioxide Level 29 mmol/L (21-32) Anion Gap 6 (6-14) Blood Urea Nitrogen 12 mg/dL (8-26) Creatinine 0.8 mg/dL (0.7-1.3) Estimated GFR (Cockcroft-Gault) 107.6 BUN/Creatinine Ratio 15 (6-20) Glucose Level 91 mg/dL (70-99) Calcium Level 8.2 mg/dL (8.5-10.1) Total Bilirubin 0.2 mg/dL (0.2-1.0) Aspartate Amino Transf (AST/SGOT) 15 U/L (15-37) Alanine Aminotransferase (ALT/SGPT) 20 U/L (16-63) Alkaline Phosphatase 57 U/L (46-116) Total Protein 5.1 g/dL (6.4-8.2) Albumin 2.4 g/dL (3.4-5.0) Albumin/Globulin Ratio 0.9 (1.0-1.7) two units of PRBCs last noc along with two units FFP Assessment/Plan UGI bleed hemodynamically stable follow H&H Problems: KATHARINE APARICIO MD Jun 21, 2017 10:53
--- NOTE | 2017-06-21 13:35 | PATHOLOGY ---
PATHOLOGY REPORT * * * * * * * * FINAL DIAGNOSIS: Stomach, antrum, biopsy: - Chronic superficial gastritis, mild. - No evidence of Helicobacter pylori on controlled immunoperoxidase stain. (SKM:[place]; 06/21/2017) REPORT ELECTRONICALLY SIGNED BY: Nettie Cosme M.D. DATE/TIME: 06/21/2017 13:34 * * * * * * * * GROSS PATHOLOGY: Received in formalin labeled "Carol Fernandez, gastric antrum BX r/o H. pylori," are 2 segments of [place] soft tissue measuring 1.1 x 0.5 x 0.2 cm in aggregate dimensions and ranging from 0.2 to 0.9 cm in maximum dimension. The specimen is submitted entirely in cassette A1. (TSD; 06/20/2017) INITIAL CPT CODE(S): A; 75219, 93472 Professional services performed [place] [facility] [place] [address] Technical services performed by [facility] at [address] [place] [address], [facility] [address] [address]. SPECIMEN(S) RECEIVED: A.Gastric antrum biopsy, r/o H. Pylori CLINICAL HISTORY: GI bleed PATIENT: CAROL FERNANDEZ /AGE: 1108/17/1975 (Age: 41) PATIENT #: [id number] ALT CASE #: SPECIMEN COLLECTION DATE: 06/20/2017 SPECIMEN RECEIVED DATE: 06/20/2017 [facility] - [address] [place] [address] - PHONE: [phone] * * * END OF REPORT * * *
[2017-06-21] MEDS: CYANOCOBALAMIN (VITAMIN B-12) 1,000 MCG/ML VIAL IM SCH (18:29)
[2017-06-22] MEDS: MORPHINE SULFATE 4 MG/ML DISP.SYRIN. IV PRN ×2 (02:59→05:26)
[2017-06-22 03:00] VITALS: BP 108/62
[2017-06-22] MEDS: PANTOPRAZOLE SODIUM IV DRIP 80 MG in IV NORMAL SALINE 100ML 100 ML IV SCH (05:07)
[2017-06-22] MEDS: IV NORMAL SALINE 1000ML BAG 1,000 ML IV SCH (05:27)
[2017-06-22 06:47] LABS: HEMATOCRIT 24.7 % (39.0-53.0); HEMOGLOBIN 8.5 g/dL (13.0-17.5)
[2017-06-22] MEDS: HYDROmorphone 2 MG/ML VIAL IV PRN ×3 (06:54→10:26)
[2017-06-22 07:15] VITALS: BP 102/53
--- NOTE | 2017-06-22 10:03 | PDOC ---
Subjective: Subjective: Taking some broth, thankful to be able to drink something. Feeling better, has been up walking. No bleeding/stools. Right-sided pain better. Asking for plans to DC. Feels swollen, urinating a lot. Objective: Vital Signs: Vital Signs Date Time Temp Pulse Resp B/P (MAP) Pulse Ox O2 Delivery O2 Flow Rate FiO2 06/22/17 08:40 97 Room Air 06/22/17 07:15 97.5 67 16 102/53 (69) 97.5 Labs: Laboratory Tests Test 06/22/17 05:50 Hemoglobin 8.5 g/dL Hematocrit 24.7 % Mean Corpuscular Hemoglobin Concent 35 g/dL PE: GEN: NAD LUNGS: CTAB HEART: RRR ABD: NABS, S/ND/NT NEURO/PSYCH: A & O 3, smiling, less anxious today EXTREM: BUE puffy, a bit painful A/P: Blood loss anemia -Hgb stable (yesterday 8.2 to 8.5 today), no recurrent bleeding/melena Duodenal ulcer s/p endotherapy 06/20/17 -on PPI drip -did have DUs on EGDs in 2014 and 2015 H. pylori negative gastritis H/o Crohn's s/p resection x 2 -recently tapered off prednisone -plans to restart Humira ---> has been off since last resection in 02/2015 -last colonoscopy 2014 -- Doing well w/ clears this morning. If tolerates, ADAT. Will change to PO PPI. Probably doesn't need fluids now - will defer to primary, d/w GALO. NURIA CROSS Jun 22, 2017 10:03
[2017-06-22 11:13] VITALS: BP 92/59
[2017-06-22] MEDS ORDERED: oxyCODONE/APAP 5/325 1 TAB TABLET PO SCH (12:30)
[2017-06-22] MEDS ORDERED: oxyCODONE/APAP 5/325 1 TAB TABLET PO PRN (12:30)
[2017-06-22] MEDS: HYDROmorphone 2 MG/ML VIAL IVP PRN ×4 (12:53→22:07)
--- NOTE | 2017-06-22 14:03 | PDOC ---
SURGICAL PROGRESS NOTE Subjective tolerating diet some RUQ pain no nausea stools brown Vital Signs Vital Signs Date Time Temp Pulse Resp B/P (MAP) Pulse Ox O2 Delivery O2 Flow Rate FiO2 06/22/17 13:30 97 Room Air 06/22/17 11:13 98.4 73 18 92/59 (70) 98.4 General: Alert, Oriented X3, Cooperative, No acute distress Abdomen: Soft, Other (mildly tender RUQ) Labs Laboratory Tests Test 06/20/17 15:55 06/20/17 17:45 06/20/17 22:35 06/21/17 05:40 Hemoglobin 7.6 g/dL (13.0-17.5) 8.3 g/dL (13.0-17.5) 8.2 g/dL (13.0-17.5) Prothrombin Time 14.2 SEC (11.7-14.0) Prothromb Time International Ratio 1.2 (0.8-1.1) White Blood Count 9.5 x10^3/uL (4.0-11.0) 8.6 x10^3/uL (4.0-11.0) Red Blood Count 2.87 x10^6/uL (4.30-5.70) 2.84 x10^6/uL (4.30-5.70) Hematocrit 24.7 % (39.0-53.0) 24.5 % (39.0-53.0) Mean Corpuscular Volume 86 fL (79-100) 86 fL (79-100) Mean Corpuscular Hemoglobin 29 pg (25-35) 29 pg (25-35) Mean Corpuscular Hemoglobin Concent 34 g/dL (31-37) 34 g/dL (31-37) Red Cell Distribution Width 17.7 % (11.5-14.5) 17.9 % (11.5-14.5) Platelet Count 173 x10^3/uL (140-400) 177 x10^3/uL (140-400) Neutrophils (%) (Auto) 73 % (31-73) Lymphocytes (%) (Auto) 20 % (24-48) Monocytes (%) (Auto) 6 % (0-9) Eosinophils (%) (Auto) 0 % (0-3) Basophils (%) (Auto) 1 % (0-3) Neutrophils # (Auto) 6.3 x10^3uL (1.8-7.7) Lymphocytes # (Auto) 1.7 x10^3/uL (1.0-4.8) Monocytes # (Auto) 0.5 x10^3/uL (0.0-1.1) Eosinophils # (Auto) 0.0 x10^3/uL (0.0-0.7) Basophils # (Auto) 0.0 x10^3/uL (0.0-0.2) Reticulocyte Count (auto) 1.4 % (0.5-2.5) Haptoglobin 180 mg/dL (34-200) Sodium Level 143 mmol/L (136-145) Potassium Level 3.6 mmol/L (3.5-5.1) Chloride Level 108 mmol/L (98-107) Carbon Dioxide Level 29 mmol/L (21-32) Anion Gap 6 (6-14) Blood Urea Nitrogen 12 mg/dL (8-26) Creatinine 0.8 mg/dL (0.7-1.3) Estimated GFR (Cockcroft-Gault) 107.6 BUN/Creatinine Ratio 15 (6-20) Glucose Level 91 mg/dL (70-99) Calcium Level 8.2 mg/dL (8.5-10.1) Total Bilirubin 0.2 mg/dL (0.2-1.0) Aspartate Amino Transf (AST/SGOT) 15 U/L (15-37) Alanine Aminotransferase (ALT/SGPT) 20 U/L (16-63) Alkaline Phosphatase 57 U/L (46-116) Total Protein 5.1 g/dL (6.4-8.2) Albumin 2.4 g/dL (3.4-5.0) Albumin/Globulin Ratio 0.9 (1.0-1.7) Test 06/22/17 05:50 Hemoglobin 8.5 g/dL (13.0-17.5) Hematocrit 24.7 % (39.0-53.0) Mean Corpuscular Hemoglobin Concent 35 g/dL (31-37) Laboratory Tests Test 06/22/17 05:50 Hemoglobin 8.5 g/dL (13.0-17.5) Hematocrit 24.7 % (39.0-53.0) Mean Corpuscular Hemoglobin Concent 35 g/dL (31-37) Problem List gi bleed hgb stable, diet advanced, possible DC in AM Problems: JEN MITCHELL APRN Jun 22, 2017 14:03
[2017-06-22 15:06] VITALS: BP 119/70
--- NOTE | 2017-06-22 15:39 | PDOC ---
PROGRESS NOTES Chief Complaint Chief Complaint UGIB ASSESSMENT AND PLAN: 1. Duodenal ulcer: s/p EGD with clip/cautery on 06/21. no signs of ongoing bleed. starting clear liquids. on PPI 2. Anemia: acute bleed, s/p PRBC x4, FFP x2. how Hgb stable in mid 8 range. monitor 3. B12/iron deficiency: replete IM/IV. also component of inflammation ( severely depressed TIBC). may benefit from PO iron down the road, although possibly malabsorption with dual deficiencies. 4. Crohn's exacerbation: as per GI 5. Abd pain: 2/2 ulcer and treatment. transition from IV to PO meds 6. SIRS, due above; resolved 7. Hyperkalemia, hyponatremia: resolved. monitor History of Present Illness History of Present Illness feels much better, pain controlled with IV meds, leery to take PO. long discussion with him about potential of meds causing ulcer vs Crohn's Vitals Vitals Vital Signs Date Time Temp Pulse Resp B/P (MAP) Pulse Ox O2 Delivery O2 Flow Rate FiO2 06/22/17 13:30 97 Room Air 06/22/17 11:13 98.4 73 18 92/59 (70) 98.4 Physical Exam General: Alert, Oriented X3, Cooperative, No acute distress Heart: Regular rate Lungs: Clear Abdomen: Soft, Other (mildly tender RUQ) Extremities: No edema Skin: No rashes Labs LABS Laboratory Tests Test 06/22/17 05:50 Hemoglobin 8.5 g/dL (13.0-17.5) Hematocrit 24.7 % (39.0-53.0) Mean Corpuscular Hemoglobin Concent 35 g/dL (31-37) LINDA MENSAH MD Jun 22, 2017 15:39
[2017-06-22] MEDS: PANTOPRAZOLE 40 MG TABLET.DR. PO SCH (15:50)
[2017-06-22] MEDS: CYANOCOBALAMIN (VITAMIN B-12) 1,000 MCG/ML VIAL IM SCH (15:51)
[2017-06-22 19:00] VITALS: BP 107/66
[2017-06-22] MEDS ORDERED: diphenhydrAMINE HCL 25 MG CAPSULE PO PRN (21:00)
[2017-06-22] MEDS: IRON SUCROSE COMPLEX 300 MG in IV NORMAL SALINE 250ML 250 ML IV SCH (21:23)
[2017-06-22 23:00] VITALS: BP 95/56
[2017-06-23 03:00] VITALS: BP 96/60
[2017-06-23] MEDS: HYDROmorphone 2 MG/ML VIAL IVP PRN (04:31)
[2017-06-23 05:37] LABS: BASO % 0 % (0-3); EOS % 1 % (0-3); HEMATOCRIT 27.9 % (39.0-53.0); HEMOGLOBIN 9.6 g/dL (13.0-17.5); LYMPH # 1.3 x10^3/uL (1.0-4.8); LYMPH % 17 % (24-48); MEAN CORPUSCULAR HEMOGLOBIN 29 pg (25-35); MEAN CORPUSCULAR HGB CONC 34 g/dL (31-37); MEAN CORPUSCULAR VOLUME 85 fL (79-100); MONO % 7 % (0-9); NEUT % 75 % (31-73); PLATELET COUNT 205 x10^3/uL (140-400); RED BLOOD COUNT 3.28 x10^6/uL (4.30-5.70); RED CELL DISTRIBUTION WIDTH 17.7 % (11.5-14.5); WHITE BLOOD COUNT 7.8 x10^3/uL (4.0-11.0)
[2017-06-23 05:52] LABS: ALBUMIN 2.7 g/dL (3.4-5.0); ALBUMIN/GLOBULIN RATIO 0.8 (1.0-1.7); CALCIUM 8.6 mg/dL (8.5-10.1); CREATININE 0.9 mg/dL (0.7-1.3); GFR 93.9; POTASSIUM 3.4 mmol/L (3.5-5.1); TOTAL BILIRUBIN 0.3 mg/dL (0.2-1.0); TOTAL PROTEIN 6.1 g/dL (6.4-8.2)
[2017-06-23] MEDS: PANTOPRAZOLE 40 MG TABLET.DR. PO SCH (06:43)
[2017-06-23 07:00] VITALS: BP 111/58
[2017-06-23] MEDS ORDERED: oxyCODONE/APAP 5/325 1 TAB TABLET PO PRN (08:15)
[2017-06-23] MEDS: IRON SUCROSE COMPLEX 300 MG in IV NORMAL SALINE 250ML 250 ML IV SCH (09:00)
[2017-06-23 11:12] VITALS: BP 93/56
--- NOTE | 2017-06-23 11:53 | PDOC ---
G I PROGRESS NOTE Reason for Follow-up Acute blood loss anemia/bleeding DU S/p endoscopic therapy Subjective Feeling better Physical Exam Lungs clear CV S1 S2 ABD +BS, soft, nontender Review of Relevant I have reviewed the following items jassi (where applicable) has been applied. Labs Laboratory Tests Test 06/22/17 05:50 06/23/17 05:05 Hemoglobin 8.5 g/dL (13.0-17.5) 9.6 g/dL (13.0-17.5) Hematocrit 24.7 % (39.0-53.0) 27.9 % (39.0-53.0) Mean Corpuscular Hemoglobin Concent 35 g/dL (31-37) 34 g/dL (31-37) White Blood Count 7.8 x10^3/uL (4.0-11.0) Red Blood Count 3.28 x10^6/uL (4.30-5.70) Mean Corpuscular Volume 85 fL (79-100) Mean Corpuscular Hemoglobin 29 pg (25-35) Red Cell Distribution Width 17.7 % (11.5-14.5) Platelet Count 205 x10^3/uL (140-400) Neutrophils (%) (Auto) 75 % (31-73) Lymphocytes (%) (Auto) 17 % (24-48) Monocytes (%) (Auto) 7 % (0-9) Eosinophils (%) (Auto) 1 % (0-3) Basophils (%) (Auto) 0 % (0-3) Neutrophils # (Auto) 5.9 x10^3uL (1.8-7.7) Lymphocytes # (Auto) 1.3 x10^3/uL (1.0-4.8) Monocytes # (Auto) 0.5 x10^3/uL (0.0-1.1) Eosinophils # (Auto) 0.1 x10^3/uL (0.0-0.7) Basophils # (Auto) 0.0 x10^3/uL (0.0-0.2) Sodium Level 144 mmol/L (136-145) Potassium Level 3.4 mmol/L (3.5-5.1) Chloride Level 107 mmol/L (98-107) Carbon Dioxide Level 29 mmol/L (21-32) Anion Gap 8 (6-14) Blood Urea Nitrogen 4 mg/dL (8-26) Creatinine 0.9 mg/dL (0.7-1.3) Estimated GFR (Cockcroft-Gault) 93.9 BUN/Creatinine Ratio 4 (6-20) Glucose Level 114 mg/dL (70-99) Calcium Level 8.6 mg/dL (8.5-10.1) Total Bilirubin 0.3 mg/dL (0.2-1.0) Aspartate Amino Transf (AST/SGOT) 108 U/L (15-37) Alanine Aminotransferase (ALT/SGPT) 100 U/L (16-63) Alkaline Phosphatase 96 U/L (46-116) Total Protein 6.1 g/dL (6.4-8.2) Albumin 2.7 g/dL (3.4-5.0) Albumin/Globulin Ratio 0.8 (1.0-1.7) Laboratory Tests Test 06/23/17 05:05 White Blood Count 7.8 x10^3/uL (4.0-11.0) Red Blood Count 3.28 x10^6/uL (4.30-5.70) Hemoglobin 9.6 g/dL (13.0-17.5) Hematocrit 27.9 % (39.0-53.0) Mean Corpuscular Volume 85 fL (79-100) Mean Corpuscular Hemoglobin 29 pg (25-35) Mean Corpuscular Hemoglobin Concent 34 g/dL (31-37) Red Cell Distribution Width 17.7 % (11.5-14.5) Platelet Count 205 x10^3/uL (140-400) Neutrophils (%) (Auto) 75 % (31-73) Lymphocytes (%) (Auto) 17 % (24-48) Monocytes (%) (Auto) 7 % (0-9) Eosinophils (%) (Auto) 1 % (0-3) Basophils (%) (Auto) 0 % (0-3) Neutrophils # (Auto) 5.9 x10^3uL (1.8-7.7) Lymphocytes # (Auto) 1.3 x10^3/uL (1.0-4.8) Monocytes # (Auto) 0.5 x10^3/uL (0.0-1.1) Eosinophils # (Auto) 0.1 x10^3/uL (0.0-0.7) Basophils # (Auto) 0.0 x10^3/uL (0.0-0.2) Sodium Level 144 mmol/L (136-145) Potassium Level 3.4 mmol/L (3.5-5.1) Chloride Level 107 mmol/L (98-107) Carbon Dioxide Level 29 mmol/L (21-32) Anion Gap 8 (6-14) Blood Urea Nitrogen 4 mg/dL (8-26) Creatinine 0.9 mg/dL (0.7-1.3) Estimated GFR (Cockcroft-Gault) 93.9 BUN/Creatinine Ratio 4 (6-20) Glucose Level 114 mg/dL (70-99) Calcium Level 8.6 mg/dL (8.5-10.1) Total Bilirubin 0.3 mg/dL (0.2-1.0) Aspartate Amino Transf (AST/SGOT) 108 U/L (15-37) Alanine Aminotransferase (ALT/SGPT) 100 U/L (16-63) Alkaline Phosphatase 96 U/L (46-116) Total Protein 6.1 g/dL (6.4-8.2) Albumin 2.7 g/dL (3.4-5.0) Albumin/Globulin Ratio 0.8 (1.0-1.7) Medications Current Medications Fentanyl Citrate (Fentanyl 2ml Vial) 50 mcg 1X ONCE IV Last administered on 11:12; Start 06/19/17 at 10:45; Stop 06/19/17 at 10:46; Status DC Ondansetron HCl (Zofran) 4 mg 1X ONCE IV Last administered on 06/19/17 11:12 ; Start 06/19/17 at 10:45; Stop 06/19/17 at 10:46; Status DC Sodium Chloride 1,000 ml @ 1,000 mls/hr 1X ONCE IV Last administered on 11:12; Start 06/19/17 at 10:45; Stop 06/19/17 at 11:44; Status DC Morphine Sulfate 4 mg 1X ONCE IV Last administered on 06/19/17 12:09; Start 06/19/17 at 12:15; Stop 06/19/17 at 12:16; Status DC Methylprednisolone Sodium Succinate (SOLU-Medrol 125MG VIAL) 125 mg 1X ONCE IV Last administered on 06/19/17 13:24; Start 06/19/17 at 13:15; Stop 06/19/17 at 13:16; Status DC Morphine Sulfate 5 mg 1X ONCE IV Last administered on 06/19/17 13:38; Start 06/19/17 at 13:30; Stop 06/19/17 at 13:31; Status DC Ondansetron HCl (Zofran) 4 mg PRN Q8HRS PRN IV NAUSEA/VOMITING Last administered on 06/19/17 13:37; Start 06/19/17 at 13:30; Stop 06/19/17 at 14:36 ; Status DC Morphine Sulfate 4 mg PRN Q2HR PRN IV PAIN; Start 06/19/17 at 13:30; Stop 06/19 at 13:51; Status DC Diphenhydramine HCl (Benadryl) 25 mg 1X ONCE IVP Last administered on 13:58; Start 06/19/17 at 14:00; Stop 06/19/17 at 14:01; Status DC Fentanyl Citrate (Fentanyl 2ml Vial) 50 mcg PRN Q1HR PRN IV pain; Start at 14:00; Stop 06/19/17 at 14:36; Status DC Fentanyl Citrate (Fentanyl 2ml Vial) 50 mcg PRN Q2HR PRN IV pain Last administered on 06/19/17 17:37; Start 06/19/17 at 14:45; Stop 06/19/17 at 18:00 ; Status DC Ondansetron HCl (Zofran) 4 mg PRN Q6HRS PRN IV NAUSEA/VOMITING Last administered on 06/20/17 09:55; Start 06/19/17 at 14:45; Stop 06/20/17 at 14:44 ; Status DC Sodium Chloride 1,000 ml @ 175 mls/hr Q5H43M IV Last administered on 03:12; Start 06/19/17 at 14:45; Stop 06/21/17 at 08:30; Status DC Famotidine (Pepcid) 20 mg BID IVP Last administered on 06/20/17 12:32; Start 06/19/17 at 21:00; Stop 06/20/17 at 15:46; Status DC Acetaminophen (Tylenol) 500 mg PRN Q6HRS PRN PO MILD PAIN / TEMP; Start at 14:45 Hydromorphone HCl (Dilaudid) 1 mg PRN Q3HRS PRN IV PAIN Last administered on t 10:13; Start 06/19/17 at 15:00; Stop 06/20/17 at 11:32; Status DC Ringer's Solution 1,000 ml @ 75 mls/hr [id number] IV ; Start 06/20/17 at 07:00; Stop 06/20/17 at 11:32; Status DC Propofol 20 ml @ As Directed STK-MED ONCE IV ; Start 06/20/17 at 09:02; Stop at 09:03; Status DC Lidocaine HCl (Lidocaine Pf 2% Vial) 5 ml STK-MED ONCE .ROUTE ; Start 06/20/17 at 09:03; Stop 06/20/17 at 09:04; Status DC Ondansetron HCl (Zofran) 4 mg PRN Q6HRS PRN IV NAUSEA/VOMITING; Start 06/20/17 at 09:45; Stop 06/21/17 at 09:44; Status DC Fentanyl Citrate (Fentanyl 2ml Vial) 25 mcg PRN Q5MIN PRN IV MILD PAIN; Start 06/20/17 at 09:45; Stop 06/21/17 at 09:44; Status DC Fentanyl Citrate (Fentanyl 2ml Vial) 50 mcg PRN Q5MIN PRN IV MODERATE PAIN; Start 06/20/17 at 09:45; Stop 06/21/17 at 09:44; Status DC Morphine Sulfate 1 mg PRN Q10MIN PRN IV SEVERE PAIN; Start 06/20/17 at 09:45; Stop 06/21/17 at 09:44; Status DC Ringer's Solution 1,000 ml @ 30 mls/hr Q24H IV ; Start 06/20/17 at 09:43; Stop 06/20/17 at 11:32; Status DC Lidocaine HCl (Xylocaine-Mpf 1% Vial) 2 ml PRN 1X PRN ID PRIOR TO IV START; Start 06/20/17 at 09:45; Stop 06/21/17 at 09:44; Status DC Hydromorphone HCl (Dilaudid) 0.5 mg PRN Q10MIN PRN IV SEV PAIN, Second choice; Start 06/20/17 at 09:45; Stop 06/21/17 at 09:44; Status DC Prochlorperazine Edisylate (Compazine) 5 mg PACU PRN PRN IV NAUSEA, MRX1; Start 06/20/17 at 09:45; Stop 06/21/17 at 09:44; Status DC Epinephrine HCl (EPINEPHrine SYRINGE) 1 mg STK-MED ONCE .ROUTE ; Start 06/20/17 at 09:49; Stop 06/20/17 at 09:50; Status DC Hydromorphone HCl (Dilaudid) 1 mg PRN Q1HR PRN IV PAIN Last administered on 10:26; Start 06/20/17 at 11:45; Stop 06/22/17 at 12:33; Status DC Pantoprazole Sodium 80 mg/ Sodium Chloride 100 ml @ 10 mls/hr Q10H IV Last administered on 06/22/17 05:07; Start 06/20/17 at 12:00; Stop 06/22/17 at 10:03 ; Status DC Morphine Sulfate 4 mg PRN Q2HR PRN IV PAIN Last administered on 06/22/17 05:26 ; Start 06/20/17 at 11:45 Morphine Sulfate 2 mg PRN Q4HRS PRN IV PAIN; Start 06/20/17 at 15:15; Stop at 12:33; Status DC Saliva Substitute (Biotene Moisturizing Mouth) 2 spray PRN Q15MIN PRN PO DRY MOUTH; Start 06/20/17 at 16:15 Ondansetron HCl (Zofran) 4 mg PRN Q6HRS PRN IV NAUSEA/VOMITING; Start 06/21/17 at 04:00 Sodium Chloride 1,000 ml @ 100 mls/hr Q10H IV Last administered on 06/22/17 05:27; Start 06/21/17 at 08:30; Stop 06/22/17 at 12:33; Status DC Cyanocobalamin (Vitamin B-12) 1,000 mcg DAILY16 IM Last administered on 15:51; Start 06/21/17 at 16:00 Pantoprazole Sodium (Protonix) 40 mg BIDAC PO Last administered on 06/23/17 06 :43; Start 06/22/17 at 16:30 Hydromorphone HCl (Dilaudid) 0.3 mg PRN Q3HRS PRN IVP PAIN Last administered on 06/23/17 04:31; Start 06/22/17 at 12:30 Oxycodone/ Acetaminophen (Percocet 5/325) 1 tab PRN Q4HRS PRN PO PAIN Last administered on 06/22/17 15:50; Start 06/22/17 at 12:30 Oxycodone/ Acetaminophen (Percocet 5/325) 2 tab PRN Q4HRS PO ; Start 06/22/17 at 12:30; Stop 06/23/17 at 08:10; Status DC Iron Sucrose 300 mg/Sodium Chloride 265 ml @ 90 mls/hr BID IV Last administered on 06/22/17 21:23; Start 06/22/17 at 21:00; Stop 06/24/17 at 07:00 Diphenhydramine HCl (Benadryl) 50 mg PRN QHS PRN PO INSOMNIA Last administered on 06/22/17 22:06; Start 06/22/17 at 21:00 Oxycodone/ Acetaminophen (Percocet 5/325) 2 tab PRN Q4HRS PRN PO PAIN Last administered on 06/23/17 08:17; Start 06/23/17 at 08:15 Active Scripts Active Reported Vitamin B-12 (Cyanocobalamin (Vitamin B-12)) 100 Mcg Tablet 100 Mcg PO Multi Vitamin Daily (Multivitamin) 1 Each Tablet 1 Each PO Amphetamine Salts 20 Mg Tablet (Dextroamphetamine/Amphetamine) 20 Mg Tablet 20 Mg PO Vitals/I & O Vital Sign - Last 24 Hours 06/22/17 06/22/17 06/22/17 06/22/17 12:53 15:06 15:50 15:51 Temp 98.3 98.3 Pulse 66 Resp 20 B/P (MAP) 119/70 (86) Pulse Ox 97 96 96 96 O2 Delivery Room Air Room Air Room Air Room Air 06/22/17 06/22/17 06/22/17 06/22/17 17:36 18:46 19:00 19:20 Temp 97.9 97.9 Pulse 75 Resp 19 B/P (MAP) 107/66 (80) Pulse Ox 96 96 100 96 O2 Delivery Room Air Room Air Room Air 06/22/17 06/22/17 06/22/17 06/23/17 19:45 22:07 23:00 03:00 Temp 98.3 98.4 98.3 98.4 Pulse 89 89 Resp 16 19 19 B/P (MAP) 95/56 (69) 96/60 (72) Pulse Ox 98 94 O2 Delivery Room Air Room Air Room Air Room Air 06/23/17 06/23/17 06/23/17 06/23/17 04:31 05:05 07:00 08:00 Temp 97.9 97.9 Pulse 87 Resp 18 18 16 B/P (MAP) 111/58 (75) Pulse Ox 96 O2 Delivery Room Air Room Air Room Air Room Air 06/23/17 06/23/17 06/23/17 08:17 09:17 11:12 Temp 97.9 97.9 Pulse 82 Resp 16 20 16 B/P (MAP) 93/56 (68) Pulse Ox 97 O2 Delivery Room Air Room Air Room Air Intake and Output 06/23/17 06/23/17 06/24/17 15:00 23:00 07:00 Intake Total 480 ml Output Total 600 ml Balance -120 ml Problem List DU- s/p bleed, s/p endoscopic therapy Hg stable, tolerating PO, stable for release from GI standpoint with life long PPI therapy and Vit B12 injections DEBBIE MURRAY MD Jun 23, 2017 11:53
--- NOTE | 2017-06-23 12:14 | PDOC ---
PROGRESS NOTES Chief Complaint Chief Complaint UGIB ASSESSMENT AND PLAN: 1. Duodenal ulcer: s/p EGD with clip/cautery on 06/21. no signs of ongoing bleed. starting clear liquids. on PPI 2. Anemia: acute bleed, s/p PRBC x4, FFP x2. how Hgb stable in mid 8 range. monitor 3. B12/iron deficiency: replete IM/IV. also component of inflammation ( severely depressed TIBC). may benefit from PO iron down the road, although possibly malabsorption with dual deficiencies. 4. Crohn's exacerbation: as per GI 5. Abd pain: 2/2 ulcer and treatment. transition from IV to PO meds 6. SIRS, due above; resolved 7. Hyperkalemia, hyponatremia: resolved. monitor History of Present Illness History of Present Illness Patient up and speaking with nurse at computer. Patient indicated he was ready to go home and had no more pain. Nurse mentioned the patient required iron. Okay with having patient take OTC po iron. Vitals Vitals Vital Signs Date Time Temp Pulse Resp B/P (MAP) Pulse Ox O2 Delivery O2 Flow Rate FiO2 06/23/17 11:12 97.9 82 16 93/56 (68) 97 Room Air 97.9 Physical Exam Physical Exam Patient communicating and ambulating well. Indicated he was ready to be discharged. General: Alert, Oriented X3, Cooperative, No acute distress Heart: Regular rate Lungs: Clear Abdomen: Soft, Other (mildly tender RUQ) Extremities: No clubbing, No cyanosis, No edema, Normal pulses Skin: No rashes, No breakdown Labs LABS Laboratory Tests Test 06/23/17 05:05 White Blood Count 7.8 x10^3/uL (4.0-11.0) Red Blood Count 3.28 x10^6/uL (4.30-5.70) Hemoglobin 9.6 g/dL (13.0-17.5) Hematocrit 27.9 % (39.0-53.0) Mean Corpuscular Volume 85 fL (79-100) Mean Corpuscular Hemoglobin 29 pg (25-35) Mean Corpuscular Hemoglobin Concent 34 g/dL (31-37) Red Cell Distribution Width 17.7 % (11.5-14.5) Platelet Count 205 x10^3/uL (140-400) Neutrophils (%) (Auto) 75 % (31-73) Lymphocytes (%) (Auto) 17 % (24-48) Monocytes (%) (Auto) 7 % (0-9) Eosinophils (%) (Auto) 1 % (0-3) Basophils (%) (Auto) 0 % (0-3) Neutrophils # (Auto) 5.9 x10^3uL (1.8-7.7) Lymphocytes # (Auto) 1.3 x10^3/uL (1.0-4.8) Monocytes # (Auto) 0.5 x10^3/uL (0.0-1.1) Eosinophils # (Auto) 0.1 x10^3/uL (0.0-0.7) Basophils # (Auto) 0.0 x10^3/uL (0.0-0.2) Sodium Level 144 mmol/L (136-145) Potassium Level 3.4 mmol/L (3.5-5.1) Chloride Level 107 mmol/L (98-107) Carbon Dioxide Level 29 mmol/L (21-32) Anion Gap 8 (6-14) Blood Urea Nitrogen 4 mg/dL (8-26) Creatinine 0.9 mg/dL (0.7-1.3) Estimated GFR (Cockcroft-Gault) 93.9 BUN/Creatinine Ratio 4 (6-20) Glucose Level 114 mg/dL (70-99) Calcium Level 8.6 mg/dL (8.5-10.1) Total Bilirubin 0.3 mg/dL (0.2-1.0) Aspartate Amino Transf (AST/SGOT) 108 U/L (15-37) Alanine Aminotransferase (ALT/SGPT) 100 U/L (16-63) Alkaline Phosphatase 96 U/L (46-116) Total Protein 6.1 g/dL (6.4-8.2) Albumin 2.7 g/dL (3.4-5.0) Albumin/Globulin Ratio 0.8 (1.0-1.7) Review of Systems Review of Systems Patient was hungry and tired. Assessment and Plan Assessmemt and Plan ASSESSMENT AND PLAN: 1. Duodenal ulcer: s/p EGD with clip/cautery on 06/21. no signs of ongoing bleed. starting clear liquids. on PPI 2. Anemia: acute bleed, s/p PRBC x4, FFP x2. how Hgb stable in mid 8 range. monitor 3. B12/iron deficiency: replete IM/IV. also component of inflammation ( severely depressed TIBC). may benefit from PO iron down the road, although possibly malabsorption with dual deficiencies. 4. Crohn's exacerbation: as per GI 5. Abd pain: 2/2 ulcer and treatment. transition from IV to PO meds 6. SIRS, due above; resolved 7. Hyperkalemia, hyponatremia: resolved. monitor Plan: 1. Discontinue IV fe; patient can take po fe prn 2. Okay with discharge if specialists agree. 3. Continue with regular diet. 4. Continue regular excercise. 5. Continue follow up with PCP regarding Crohn's disease Problems: Comment Review of Relevant I have reviewed the following items jassi (where applicable) has been applied. Labs Laboratory Tests Test 06/22/17 05:50 06/23/17 05:05 Hemoglobin 8.5 g/dL (13.0-17.5) 9.6 g/dL (13.0-17.5) Hematocrit 24.7 % (39.0-53.0) 27.9 % (39.0-53.0) Mean Corpuscular Hemoglobin Concent 35 g/dL (31-37) 34 g/dL (31-37) White Blood Count 7.8 x10^3/uL (4.0-11.0) Red Blood Count 3.28 x10^6/uL (4.30-5.70) Mean Corpuscular Volume 85 fL (79-100) Mean Corpuscular Hemoglobin 29 pg (25-35) Red Cell Distribution Width 17.7 % (11.5-14.5) Platelet Count 205 x10^3/uL (140-400) Neutrophils (%) (Auto) 75 % (31-73) Lymphocytes (%) (Auto) 17 % (24-48) Monocytes (%) (Auto) 7 % (0-9) Eosinophils (%) (Auto) 1 % (0-3) Basophils (%) (Auto) 0 % (0-3) Neutrophils # (Auto) 5.9 x10^3uL (1.8-7.7) Lymphocytes # (Auto) 1.3 x10^3/uL (1.0-4.8) Monocytes # (Auto) 0.5 x10^3/uL (0.0-1.1) Eosinophils # (Auto) 0.1 x10^3/uL (0.0-0.7) Basophils # (Auto) 0.0 x10^3/uL (0.0-0.2) Sodium Level 144 mmol/L (136-145) Potassium Level 3.4 mmol/L (3.5-5.1) Chloride Level 107 mmol/L (98-107) Carbon Dioxide Level 29 mmol/L (21-32) Anion Gap 8 (6-14) Blood Urea Nitrogen 4 mg/dL (8-26) Creatinine 0.9 mg/dL (0.7-1.3) Estimated GFR (Cockcroft-Gault) 93.9 BUN/Creatinine Ratio 4 (6-20) Glucose Level 114 mg/dL (70-99) Calcium Level 8.6 mg/dL (8.5-10.1) Total Bilirubin 0.3 mg/dL (0.2-1.0) Aspartate Amino Transf (AST/SGOT) 108 U/L (15-37) Alanine Aminotransferase (ALT/SGPT) 100 U/L (16-63) Alkaline Phosphatase 96 U/L (46-116) Total Protein 6.1 g/dL (6.4-8.2) Albumin 2.7 g/dL (3.4-5.0) Albumin/Globulin Ratio 0.8 (1.0-1.7) Laboratory Tests Test 06/23/17 05:05 White Blood Count 7.8 x10^3/uL (4.0-11.0) Red Blood Count 3.28 x10^6/uL (4.30-5.70) Hemoglobin 9.6 g/dL (13.0-17.5) Hematocrit 27.9 % (39.0-53.0) Mean Corpuscular Volume 85 fL (79-100) Mean Corpuscular Hemoglobin 29 pg (25-35) Mean Corpuscular Hemoglobin Concent 34 g/dL (31-37) Red Cell Distribution Width 17.7 % (11.5-14.5) Platelet Count 205 x10^3/uL (140-400) Neutrophils (%) (Auto) 75 % (31-73) Lymphocytes (%) (Auto) 17 % (24-48) Monocytes (%) (Auto) 7 % (0-9) Eosinophils (%) (Auto) 1 % (0-3) Basophils (%) (Auto) 0 % (0-3) Neutrophils # (Auto) 5.9 x10^3uL (1.8-7.7) Lymphocytes # (Auto) 1.3 x10^3/uL (1.0-4.8) Monocytes # (Auto) 0.5 x10^3/uL (0.0-1.1) Eosinophils # (Auto) 0.1 x10^3/uL (0.0-0.7) Basophils # (Auto) 0.0 x10^3/uL (0.0-0.2) Sodium Level 144 mmol/L (136-145) Potassium Level 3.4 mmol/L (3.5-5.1) Chloride Level 107 mmol/L (98-107) Carbon Dioxide Level 29 mmol/L (21-32) Anion Gap 8 (6-14) Blood Urea Nitrogen 4 mg/dL (8-26) Creatinine 0.9 mg/dL (0.7-1.3) Estimated GFR (Cockcroft-Gault) 93.9 BUN/Creatinine Ratio 4 (6-20) Glucose Level 114 mg/dL (70-99) Calcium Level 8.6 mg/dL (8.5-10.1) Total Bilirubin 0.3 mg/dL (0.2-1.0) Aspartate Amino Transf (AST/SGOT) 108 U/L (15-37) Alanine Aminotransferase (ALT/SGPT) 100 U/L (16-63) Alkaline Phosphatase 96 U/L (46-116) Total Protein 6.1 g/dL (6.4-8.2) Albumin 2.7 g/dL (3.4-5.0) Albumin/Globulin Ratio 0.8 (1.0-1.7) Medications Current Medications Fentanyl Citrate (Fentanyl 2ml Vial) 50 mcg 1X ONCE IV Last administered on 11:12; Start 06/19/17 at 10:45; Stop 06/19/17 at 10:46; Status DC Ondansetron HCl (Zofran) 4 mg 1X ONCE IV Last administered on 06/19/17 11:12 ; Start 06/19/17 at 10:45; Stop 06/19/17 at 10:46; Status DC Sodium Chloride 1,000 ml @ 1,000 mls/hr 1X ONCE IV Last administered on 11:12; Start 06/19/17 at 10:45; Stop 06/19/17 at 11:44; Status DC Morphine Sulfate 4 mg 1X ONCE IV Last administered on 06/19/17 12:09; Start 06/19/17 at 12:15; Stop 06/19/17 at 12:16; Status DC Methylprednisolone Sodium Succinate (SOLU-Medrol 125MG VIAL) 125 mg 1X ONCE IV Last administered on 06/19/17 13:24; Start 06/19/17 at 13:15; Stop 06/19/17 at 13:16; Status DC Morphine Sulfate 5 mg 1X ONCE IV Last administered on 06/19/17 13:38; Start 06/19/17 at 13:30; Stop 06/19/17 at 13:31; Status DC Ondansetron HCl (Zofran) 4 mg PRN Q8HRS PRN IV NAUSEA/VOMITING Last administered on 06/19/17 13:37; Start 06/19/17 at 13:30; Stop 06/19/17 at 14:36 ; Status DC Morphine Sulfate 4 mg PRN Q2HR PRN IV PAIN; Start 06/19/17 at 13:30; Stop 06/19 at 13:51; Status DC Diphenhydramine HCl (Benadryl) 25 mg 1X ONCE IVP Last administered on 13:58; Start 06/19/17 at 14:00; Stop 06/19/17 at 14:01; Status DC Fentanyl Citrate (Fentanyl 2ml Vial) 50 mcg PRN Q1HR PRN IV pain; Start at 14:00; Stop 06/19/17 at 14:36; Status DC Fentanyl Citrate (Fentanyl 2ml Vial) 50 mcg PRN Q2HR PRN IV pain Last administered on 06/19/17 17:37; Start 06/19/17 at 14:45; Stop 06/19/17 at 18:00 ; Status DC Ondansetron HCl (Zofran) 4 mg PRN Q6HRS PRN IV NAUSEA/VOMITING Last administered on 06/20/17 09:55; Start 06/19/17 at 14:45; Stop 06/20/17 at 14:44 ; Status DC Sodium Chloride 1,000 ml @ 175 mls/hr Q5H43M IV Last administered on 03:12; Start 06/19/17 at 14:45; Stop 06/21/17 at 08:30; Status DC Famotidine (Pepcid) 20 mg BID IVP Last administered on 06/20/17 12:32; Start 06/19/17 at 21:00; Stop 06/20/17 at 15:46; Status DC Acetaminophen (Tylenol) 500 mg PRN Q6HRS PRN PO MILD PAIN / TEMP; Start at 14:45 Hydromorphone HCl (Dilaudid) 1 mg PRN Q3HRS PRN IV PAIN Last administered on 10:13; Start 06/19/17 at 15:00; Stop 06/20/17 at 11:32; Status DC Ringer's Solution 1,000 ml @ 75 mls/hr [id number] IV ; Start 06/20/17 at 07:00; Stop 06/20/17 at 11:32; Status DC Propofol 20 ml @ As Directed STK-MED ONCE IV ; Start 06/20/17 at 09:02; Stop at 09:03; Status DC Lidocaine HCl (Lidocaine Pf 2% Vial) 5 ml STK-MED ONCE .ROUTE ; Start 06/20/17 at 09:03; Stop 06/20/17 at 09:04; Status DC Ondansetron HCl (Zofran) 4 mg PRN Q6HRS PRN IV NAUSEA/VOMITING; Start 06/20/17 at 09:45; Stop 06/21/17 at 09:44; Status DC Fentanyl Citrate (Fentanyl 2ml Vial) 25 mcg PRN Q5MIN PRN IV MILD PAIN; Start 06/20/17 at 09:45; Stop 06/21/17 at 09:44; Status DC Fentanyl Citrate (Fentanyl 2ml Vial) 50 mcg PRN Q5MIN PRN IV MODERATE PAIN; Start 06/20/17 at 09:45; Stop 06/21/17 at 09:44; Status DC Morphine Sulfate 1 mg PRN Q10MIN PRN IV SEVERE PAIN; Start 06/20/17 at 09:45; Stop 06/21/17 at 09:44; Status DC Ringer's Solution 1,000 ml @ 30 mls/hr Q24H IV ; Start 06/20/17 at 09:43; Stop 06/20/17 at 11:32; Status DC Lidocaine HCl (Xylocaine-Mpf 1% Vial) 2 ml PRN 1X PRN ID PRIOR TO IV START; Start 06/20/17 at 09:45; Stop 06/21/17 at 09:44; Status DC Hydromorphone HCl (Dilaudid) 0.5 mg PRN Q10MIN PRN IV SEV PAIN, Second choice; Start 06/20/17 at 09:45; Stop 06/21/17 at 09:44; Status DC Prochlorperazine Edisylate (Compazine) 5 mg PACU PRN PRN IV NAUSEA, MRX1; Start 06/20/17 at 09:45; Stop 06/21/17 at 09:44; Status DC Epinephrine HCl (EPINEPHrine SYRINGE) 1 mg STK-MED ONCE .ROUTE ; Start 06/20/17 at 09:49; Stop 06/20/17 at 09:50; Status DC Hydromorphone HCl (Dilaudid) 1 mg PRN Q1HR PRN IV PAIN Last administered on 10:26; Start 06/20/17 at 11:45; Stop 06/22/17 at 12:33; Status DC Pantoprazole Sodium 80 mg/ Sodium Chloride 100 ml @ 10 mls/hr Q10H IV Last administered on 06/22/17 05:07; Start 06/20/17 at 12:00; Stop 06/22/17 at 10:03 ; Status DC Morphine Sulfate 4 mg PRN Q2HR PRN IV PAIN Last administered on 06/22/17 05:26 ; Start 06/20/17 at 11:45 Morphine Sulfate 2 mg PRN Q4HRS PRN IV PAIN; Start 06/20/17 at 15:15; Stop at 12:33; Status DC Saliva Substitute (Biotene Moisturizing Mouth) 2 spray PRN Q15MIN PRN PO DRY MOUTH; Start 06/20/17 at 16:15 Ondansetron HCl (Zofran) 4 mg PRN Q6HRS PRN IV NAUSEA/VOMITING; Start 06/21/17 at 04:00 Sodium Chloride 1,000 ml @ 100 mls/hr Q10H IV Last administered on 06/22/17 05:27; Start 06/21/17 at 08:30; Stop 06/22/17 at 12:33; Status DC Cyanocobalamin (Vitamin B-12) 1,000 mcg DAILY16 IM Last administered on 15:51; Start 06/21/17 at 16:00 Pantoprazole Sodium (Protonix) 40 mg BIDAC PO Last administered on 06/23/17 06 :43; Start 06/22/17 at 16:30 Hydromorphone HCl (Dilaudid) 0.3 mg PRN Q3HRS PRN IVP PAIN Last administered on 06/23/17 04:31; Start 06/22/17 at 12:30 Oxycodone/ Acetaminophen (Percocet 5/325) 1 tab PRN Q4HRS PRN PO PAIN Last administered on 06/22/17 15:50; Start 06/22/17 at 12:30 Oxycodone/ Acetaminophen (Percocet 5/325) 2 tab PRN Q4HRS PO ; Start 06/22/17 at 12:30; Stop 06/23/17 at 08:10; Status DC Iron Sucrose 300 mg/Sodium Chloride 265 ml @ 90 mls/hr BID IV Last administered on 06/22/17 21:23; Start 06/22/17 at 21:00; Stop 06/24/17 at 07:00 Diphenhydramine HCl (Benadryl) 50 mg PRN QHS PRN PO INSOMNIA Last administered on 06/22/17 22:06; Start 06/22/17 at 21:00 Oxycodone/ Acetaminophen (Percocet 5/325) 2 tab PRN Q4HRS PRN PO PAIN Last administered on 06/23/17 08:17; Start 06/23/17 at 08:15 Active Scripts Active Reported Vitamin B-12 (Cyanocobalamin (Vitamin B-12)) 100 Mcg Tablet 100 Mcg PO Multi Vitamin Daily (Multivitamin) 1 Each Tablet 1 Each PO Amphetamine Salts 20 Mg Tablet (Dextroamphetamine/Amphetamine) 20 Mg Tablet 20 Mg PO Vitals/I & O Vital Sign - Last 24 Hours 06/22/17 06/22/17 06/22/17 06/22/17 12:53 15:06 15:50 15:51 Temp 98.3 98.3 Pulse 66 Resp 20 B/P (MAP) 119/70 (86) Pulse Ox 97 96 96 96 O2 Delivery Room Air Room Air Room Air Room Air 06/22/17 06/22/17 06/22/17 06/22/17 17:36 18:46 19:00 19:20 Temp 97.9 97.9 Pulse 75 Resp 19 B/P (MAP) 107/66 (80) Pulse Ox 96 96 100 96 O2 Delivery Room Air Room Air Room Air 06/22/17 06/22/17 06/22/17 06/23/17 19:45 22:07 23:00 03:00 Temp 98.3 98.4 98.3 98.4 Pulse 89 89 Resp 16 19 19 B/P (MAP) 95/56 (69) 96/60 (72) Pulse Ox 98 94 O2 Delivery Room Air Room Air Room Air Room Air 06/23/17 06/23/17 06/23/17 06/23/17 04:31 05:05 07:00 08:00 Temp 97.9 97.9 Pulse 87 Resp 18 18 16 B/P (MAP) 111/58 (75) Pulse Ox 96 O2 Delivery Room Air Room Air Room Air Room Air 06/23/17 06/23/17 06/23/17 08:17 09:17 11:12 Temp 97.9 97.9 Pulse 82 Resp 16 20 16 B/P (MAP) 93/56 (68) Pulse Ox 97 O2 Delivery Room Air Room Air Room Air Intake and Output 06/23/17 06/23/17 06/24/17 15:00 23:00 07:00 Intake Total 480 ml Output Total 600 ml Balance -120 ml ANURADHA MOSELEY III DO Jun 23, 2017 12:14
--- NOTE | 2017-06-23 12:26 | PDOC ---
JEN MITCHELL MOLD PULLER 06/23/17 1226: SURGICAL PROGRESS NOTE Subjective tolerating diet mild epigastric pain no bleeding Vital Signs Vital Signs Date Time Temp Pulse Resp B/P (MAP) Pulse Ox O2 Delivery O2 Flow Rate FiO2 06/23/17 11:12 97.9 82 16 93/56 (68) 97 Room Air 97.9 I&O Intake and Output 06/24/17 07:00 Intake Total 480 ml Output Total 600 ml Balance -120 ml Intake Oral 480 ml Output Urine Total 600 ml General: Alert, Oriented X3, Cooperative, No acute distress Abdomen: Soft, Other (TTP epigastric) Labs Laboratory Tests Test 06/22/17 05:50 06/23/17 05:05 Hemoglobin 8.5 g/dL (13.0-17.5) 9.6 g/dL (13.0-17.5) Hematocrit 24.7 % (39.0-53.0) 27.9 % (39.0-53.0) Mean Corpuscular Hemoglobin Concent 35 g/dL (31-37) 34 g/dL (31-37) White Blood Count 7.8 x10^3/uL (4.0-11.0) Red Blood Count 3.28 x10^6/uL (4.30-5.70) Mean Corpuscular Volume 85 fL (79-100) Mean Corpuscular Hemoglobin 29 pg (25-35) Red Cell Distribution Width 17.7 % (11.5-14.5) Platelet Count 205 x10^3/uL (140-400) Neutrophils (%) (Auto) 75 % (31-73) Lymphocytes (%) (Auto) 17 % (24-48) Monocytes (%) (Auto) 7 % (0-9) Eosinophils (%) (Auto) 1 % (0-3) Basophils (%) (Auto) 0 % (0-3) Neutrophils # (Auto) 5.9 x10^3uL (1.8-7.7) Lymphocytes # (Auto) 1.3 x10^3/uL (1.0-4.8) Monocytes # (Auto) 0.5 x10^3/uL (0.0-1.1) Eosinophils # (Auto) 0.1 x10^3/uL (0.0-0.7) Basophils # (Auto) 0.0 x10^3/uL (0.0-0.2) Sodium Level 144 mmol/L (136-145) Potassium Level 3.4 mmol/L (3.5-5.1) Chloride Level 107 mmol/L (98-107) Carbon Dioxide Level 29 mmol/L (21-32) Anion Gap 8 (6-14) Blood Urea Nitrogen 4 mg/dL (8-26) Creatinine 0.9 mg/dL (0.7-1.3) Estimated GFR (Cockcroft-Gault) 93.9 BUN/Creatinine Ratio 4 (6-20) Glucose Level 114 mg/dL (70-99) Calcium Level 8.6 mg/dL (8.5-10.1) Total Bilirubin 0.3 mg/dL (0.2-1.0) Aspartate Amino Transf (AST/SGOT) 108 U/L (15-37) Alanine Aminotransferase (ALT/SGPT) 100 U/L (16-63) Alkaline Phosphatase 96 U/L (46-116) Total Protein 6.1 g/dL (6.4-8.2) Albumin 2.7 g/dL (3.4-5.0) Albumin/Globulin Ratio 0.8 (1.0-1.7) Laboratory Tests Test 06/23/17 05:05 White Blood Count 7.8 x10^3/uL (4.0-11.0) Red Blood Count 3.28 x10^6/uL (4.30-5.70) Hemoglobin 9.6 g/dL (13.0-17.5) Hematocrit 27.9 % (39.0-53.0) Mean Corpuscular Volume 85 fL (79-100) Mean Corpuscular Hemoglobin 29 pg (25-35) Mean Corpuscular Hemoglobin Concent 34 g/dL (31-37) Red Cell Distribution Width 17.7 % (11.5-14.5) Platelet Count 205 x10^3/uL (140-400) Neutrophils (%) (Auto) 75 % (31-73) Lymphocytes (%) (Auto) 17 % (24-48) Monocytes (%) (Auto) 7 % (0-9) Eosinophils (%) (Auto) 1 % (0-3) Basophils (%) (Auto) 0 % (0-3) Neutrophils # (Auto) 5.9 x10^3uL (1.8-7.7) Lymphocytes # (Auto) 1.3 x10^3/uL (1.0-4.8) Monocytes # (Auto) 0.5 x10^3/uL (0.0-1.1) Eosinophils # (Auto) 0.1 x10^3/uL (0.0-0.7) Basophils # (Auto) 0.0 x10^3/uL (0.0-0.2) Sodium Level 144 mmol/L (136-145) Potassium Level 3.4 mmol/L (3.5-5.1) Chloride Level 107 mmol/L (98-107) Carbon Dioxide Level 29 mmol/L (21-32) Anion Gap 8 (6-14) Blood Urea Nitrogen 4 mg/dL (8-26) Creatinine 0.9 mg/dL (0.7-1.3) Estimated GFR (Cockcroft-Gault) 93.9 BUN/Creatinine Ratio 4 (6-20) Glucose Level 114 mg/dL (70-99) Calcium Level 8.6 mg/dL (8.5-10.1) Total Bilirubin 0.3 mg/dL (0.2-1.0) Aspartate Amino Transf (AST/SGOT) 108 U/L (15-37) Alanine Aminotransferase (ALT/SGPT) 100 U/L (16-63) Alkaline Phosphatase 96 U/L (46-116) Total Protein 6.1 g/dL (6.4-8.2) Albumin 2.7 g/dL (3.4-5.0) Albumin/Globulin Ratio 0.8 (1.0-1.7) Assessment/Plan DU, endoscopy management PPI no surgical needs, ok to dc Problems: KATHARINE APARICIO MD 06/23/17 1334: SURGICAL PROGRESS NOTE Assessment/Plan home today f/u prn Problems: JEN MITCHELL MOLD PULLER Jun 23, 2017 12:26 KATHARINE APARICIO MD Jun 23, 2017 13:34
--- NOTE | 2017-07-12 12:39 | DS ---
DATE OF DISCHARGE: 06/23/2017 ADMISSION DIAGNOSES: Anemia and abdominal pain, gastrointestinal bleed. DISCHARGE DIAGNOSES: Duodenal ulcer visualized on EGD (they clipped the gastrointestinal bleed), resolving gastrointestinal bleed. HOSPITAL COURSE: The patient is a pleasant 41-year-old male who presented with abdominal pain, anemia, had a GI bleed. He was admitted. We consulted GI. He was taken for an endoscopy. They did visualize an ulcer. They clipped it. He did require 4 transfusions. Over next few days, he did better. We discharged to home. DISPOSITION: Home. ACTIVITY: As tolerated. DIET: Low sodium. MEDICATIONS: Please see the MRAD. TOTAL TIME: 32 minutes. ANURADHA MOSELEY DO DR: CEM/arielle JOB#: [id number] / [id number]
== END 2017-06-23 13:30 | disposition home or self-care (01) | DRG 377 ==
LOC: ER 10:24 → 6 SOUTH 13:17 → 1 WEST ICU 06-20 10:31 → 4 NORTH 06-21 19:45
PROVIDERS: ADMIT Internal Medicine; ATTEND Internal Medicine
PROC: 30233L1 Transfusion of Nonautologous Fresh Plasma into Peripheral Vein, Percutaneous Approach (ICD-10-PCS; 2017-06-19)
PROC: 30233N1 Transfusion of Nonautologous Red Blood Cells into Peripheral Vein, Percutaneous Approach (ICD-10-PCS; 2017-06-19)
PROC: 30233K1 Transfusion of Nonautologous Frozen Plasma into Peripheral Vein, Percutaneous Approach (ICD-10-PCS; 2017-06-19)
PROC: 3E0G8GC Introduction of Other Therapeutic Substance into Upper GI, Via Natural or Artificial Opening Endoscopic (ICD-10-PCS; 2017-06-20)
PROC: 0D598ZZ Destruction of Duodenum, Via Natural or Artificial Opening Endoscopic (ICD-10-PCS; 2017-06-20)
PROC: 0W3P8ZZ Control Bleeding in Gastrointestinal Tract, Via Natural or Artificial Opening Endoscopic (ICD-10-PCS; principal; 2017-06-20 07:00)
PROC: 0DB68ZX Excision of Stomach, Via Natural or Artificial Opening Endoscopic, Diagnostic (ICD-10-PCS; 2017-06-20 07:00)
DX: K26.4 Chronic or unspecified duodenal ulcer with hemorrhage (principal); E43 Unspecified severe protein-calorie malnutrition; R65.10 Systemic inflammatory response syndrome (SIRS) of non-infectious origin without acute organ dysfunction; E87.1 Hypo-osmolality and hyponatremia; E87.5 Hyperkalemia; K50.90 Crohn's disease, unspecified, without complications; D62 Acute posthemorrhagic anemia; K29.70 Gastritis, unspecified, without bleeding; Z68.27 Body mass index [BMI] 27.0-27.9, adult; K21.0 Gastro-esophageal reflux disease with esophagitis; Z87.11 Personal history of peptic ulcer disease; Z87.442 Personal history of urinary calculi; Z90.49 Acquired absence of other specified parts of digestive tract; Z90.89 Acquired absence of other organs; Z88.8 Allergy status to other drugs, medicaments and biological substances; Z91.041 Radiographic dye allergy status; E53.8 Deficiency of other specified B group vitamins; E61.1 Iron deficiency
CPT/HCPCS: 36415; 80047; 80048; 80053; 81001; 82607; 82746; 83010; 83540; 83550; 83605; 85007; 85014; 85018; 85025; 85027; 85045; 85610; 85651; 86850; 86900; 86901; 86920; 86927; 87641; 88305; 88342; 96361; 96374; 96375; 96376; C9113; J0171; J1170; J1200; J1756; J2270; J2405; J2704; J2930; J3010; J3420; J7030; J7050; P9016; P9017; Q0163; S0028; 99285-25; J2001